=== PATIENT | female | born 1975 | race Caucasian/White ===

== ENCOUNTER 2016-12-26 16:00 | Emergency (ER) | payer SELFPAY ==
[2016-12-26 16:05] VITALS: BP 117/62
[2016-12-26] MEDS ORDERED: Tetan/Diph/Pertus SYR(Tdap)* 0.5 ML SYR(BOOSTRIX) use SYR IM ONE (17:02)
--- NOTE | 2016-12-26 18:26 | ED ---
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 She states immediately it was painful, red, swollen with copious amounts of watery discharge. Since arriving at the ED she states the discharge, redness and swelling has dissipated, but still feels as though it is irritated. She feels most of the discomfort on the lateral side of the left eye. Last tetanus unknown. Slightly injected over lateral canthus. Denies BRITO. - History of Current Complaint Chief Complaint: EDEyeProblem Time Seen by Provider: 12/26/16 17:01 Hx Obtained From: Patient Onset/Duration: Sudden Onset Severity: Moderate Associated Signs And Symptoms: Positive: Negative - Epiglottits Risk Factors Epiglottis Risk Factors: Negative - Allergies/Home Medications Allergies/Adverse Reactions: Allergies Allergy/AdvReac Type Severity Reaction Status Date / Time Furosemide [From Lasix] Allergy Severe Anaphylatic Verified 06/07/16 09:03 Shock Levofloxacin [From Levaquin] Allergy Severe Anaphylatic Verified 06/07/16 09:03 Shock Sulfa Antibiotics Allergy Mild Hives Verified 06/07/16 09:03 PMH/Surg Hx/FS Hx/Imm Hx Previously Healthy: Yes Endocrine/Hematology History: Denies: Hx Diabetes, Hx Thyroid Disease Cardiovascular History: Denies: Hx Hypertension, Hx Pacemaker/ICD Respiratory History: Denies: Hx Asthma, Hx Chronic Obstructive Pulmonary Disease (COPD) GI History: Denies: Hx Ulcer History: Reports: Hx Renal Disease Musculoskeletal History: Reports: Hx Back Problems Sensory History: Denies: Hx Hearing Aid Psychiatric History: Denies: Hx Panic Disorder - Cancer History Cancer Type, Location and Year: skin Hx Chemotherapy: No Hx Radiation Therapy: No - Surgical History Surgery Procedure, Year, and Place: tubal ligation;. benign mass from right maxillary sinus, - Immunization History Date of Tetanus Vaccine: unknown Infectious Disease History: No Infectious Disease History: Denies: Hx Clostridium Difficile, Hx Hepatitis, Hx Human Immunodeficiency Virus (HIV), Hx of Known/Suspected MRSA, Hx Shingles, Hx Tuberculosis, Hx Known/ Suspected VRE, Hx Known/Suspected VRSA, History Other Infectious Disease, Traveled Outside the [place] in Last 30 Days - Family History Known Family History: Positive: Unknown - adopted - Social History Occupation: Employed Full-time Lives: With Family Alcohol Use: None Hx Substance Use: No Substance Use Type: Reports: None Hx Tobacco Use: Yes Smoking Status (MU): Light Every Day Tobacco Smoker Do You Chew or Dip Tobacco: No Review of Systems Constitutional: Negative Positive: Photophobia, Blurred Vision, Drainage - scant ENT: Negative Cardiovascular: Negative Respiratory: Negative Musculoskeletal: Negative Skin: Negative Neurological: Negative Psychological: Normal All Other Systems Reviewed And Are Negative: Yes Physical Exam Triage Information Reviewed: Yes Vital Signs On Initial Exam: Initial Vitals Temp Pulse Resp BP Pulse Ox 99.0 F 97 18 117/62 97 12/26/16 16:02 12/26/16 16:02 12/26/16 16:02 12/26/16 16:02 12/26/16 16:02 Vital Signs Reviewed: Yes Appearance: Positive: Well-Appearing, No Pain Distress, Well-Nourished Skin: Positive: Warm, Skin Color Reflects Adequate Perfusion, Dry Head/Face: Positive: Normal Head/Face Inspection Eyes: Positive: EOMI, PEDRO, Conjunctiva Inflammed - slightly injected on medial canthus ENT: Positive: Pharynx normal, TMs normal Respiratory/Lung Sounds: Positive: Breath Sounds Present Cardiovascular: Positive: Normal Musculoskeletal: Positive: Normal, Strength/ROM Intact Neurological: Positive: Normal, Sensory/Motor Intact, Alert, Oriented to Person Place, Time, Speech Normal Psychiatric: Positive: Normal Procedures - Eye Procedure Alcaine Drops Administered: Yes Eye FB Removal: other - did not attempt to remove. No FB found in eye Eye Irrigated w/ Saline (ccs): 20 Diagnostics - Vital Signs Vital Signs Temp Pulse Resp BP Pulse Ox 12/26/16 16:02 99.0 F 97 18 117/62 97 - Laboratory Lab Statement: Any lab studies that have been ordered have been reviewed, and results considered in the medical decision making process. EENT Course/Dx - Course Course Of Treatment: Irrigated eye with 20CC of NS. Tetracaine eye drops with dye used to attempt to locate FB. Ferrer lamp used. Sclera only slightly injected over lateral canthus. No FB appreciated. Patient feeling improved ( prior to tetracaine), but still having a slight discomfort. Tetanus ordered but patient left before it was given. Patient called by RN. Encouraged to follow up with Dr. Nieto. Return to ED if symptoms fail to improve. - Differential Diagnoses Differential Diagnoses: Corneal Abrasion, Foreign Body, Pain of Unknown Etiology , Penetrating Injury - Diagnoses Provider Diagnoses: Foreign body of eye, external, left Discharge - Discharge Plan Condition: Stable Disposition: HOME Patient Education Materials: Eye Foreign Body (ED) Referrals: Kingston Mcmahan MD [Primary Care Provider] - Terry Nieto MD [Medical Doctor] - Additional Instructions: If symptoms worsen, come back to ED. Follow up with ophthalmology next week. Tylenol or Ibuprofen as needed for discomfort.
== END 2016-12-26 18:08 | disposition home or self-care (01) ==
LOC: ED 16:00
DX: T15.92XA Foreign body on external eye, part unspecified, left eye, initial encounter (principal); X58.XXXA Exposure to other specified factors, initial encounter; Y93.9 Activity, unspecified; Y92.9 Unspecified place or not applicable; Y99.9 Unspecified external cause status
CPT/HCPCS: 90471; 99281

== ENCOUNTER 2017-02-25 09:27 | Emergency (ER) | payer SELFPAY ==
--- NOTE | 2017-02-25 10:45 | RAD ---
INDICATION: Right shoulder pain COMPARISON: None TECHNIQUE: Routine frontal and Y views were obtained. FINDINGS: There is mild AC joint osteoarthritis. The glenohumeral joint is intact. There are findings of calcific tendinitis.. IMPRESSION: MILD AC JOINT OSTEOARTHRITIS. CALCIFIC TENDINITIS.
[2017-02-25] MEDS ORDERED: Ketorolac INJ* 60 MG/2 ML VIAL IM ONE (10:49)
[2017-02-25] MEDS ORDERED: oxyCODONE/Acetamin 5/325 MG* TAB PO ONE (10:55)
--- NOTE | 2017-02-25 10:55 | ED ---
Upper Extremity Pain - HPI Summary HPI Summary: 42F presents with right shoulder injury a week ago. She states she had an injury to her right shoulder years ago and has had a catch in that shoulder ever since. She states a week ago she noticed some weakness in her shoulder that has been getting worst. She can not lift her arm above 90 degrees without it immediately dropping. She states the pain is greatest in the anterior portion of her shoulder but since has moved down to her right bicep. She is right handed. She denies any numbness or tingling or neck pain. - History of Current Complaint Chief Complaint: Jeff Stated Complaint: RT SHOULDER INJURY Time Seen by Provider: 02/25/17 09:42 Hx Last Menstrual Period: dec 04 - Allergies/Home Medications Allergies/Adverse Reactions: Allergies Allergy/AdvReac Type Severity Reaction Status Date / Time Furosemide [From Lasix] Allergy Severe Anaphylatic Verified 02/25/17 10:46 Shock Levofloxacin [From Levaquin] Allergy Severe Anaphylatic Verified 02/25/17 10:46 Shock Sulfa Antibiotics Allergy Mild Hives Verified 02/25/17 10:46 PMH/Surg Hx/FS Hx/Imm Hx Endocrine/Hematology History: Denies: Hx Diabetes, Hx Thyroid Disease Cardiovascular History: Denies: Hx Hypertension, Hx Pacemaker/ICD Respiratory History: Denies: Hx Asthma, Hx Chronic Obstructive Pulmonary Disease (COPD) GI History: Denies: Hx Ulcer History: Reports: Hx Renal Disease Musculoskeletal History: Reports: Hx Back Problems Sensory History: Denies: Hx Hearing Aid Psychiatric History: Denies: Hx Panic Disorder - Cancer History Cancer Type, Location and Year: skin Hx Chemotherapy: No Hx Radiation Therapy: No - Surgical History Surgery Procedure, Year, and Place: tubal ligation;. benign mass from right maxillary sinus, - Immunization History Date of Tetanus Vaccine: unknown Infectious Disease History: No Infectious Disease History: Denies: Hx Clostridium Difficile, Hx Hepatitis, Hx Human Immunodeficiency Virus (HIV), Hx of Known/Suspected MRSA, Hx Shingles, Hx Tuberculosis, Hx Known/ Suspected VRE, Hx Known/Suspected VRSA, History Other Infectious Disease, Traveled Outside the [place] in Last 30 Days - Family History Known Family History: Positive: Unknown - adopted - Social History Alcohol Use: None Hx Substance Use: No Substance Use Type: Reports: None Hx Tobacco Use: Yes Smoking Status (MU): Light Every Day Tobacco Smoker Review of Systems Negative: Fever Negative: Chest Pain Negative: Shortness Of Breath Positive: Myalgia - right shoulder pain All Other Systems Reviewed And Are Negative: Yes Physical Exam Triage Information Reviewed: Yes Vital Signs On Initial Exam: Initial Vitals Temp Pulse Resp BP Pulse Ox 97.6 F 114 16 134/60 100 02/25/17 09:29 02/25/17 09:29 02/25/17 09:29 02/25/17 09:29 02/25/17 09:29 Vital Signs Reviewed: Yes Appearance: Positive: Well-Appearing Skin: Positive: Warm, Dry Head/Face: Positive: Normal Head/Face Inspection Eyes: Positive: Normal, Conjunctiva Clear Respiratory/Lung Sounds: Positive: Clear to Auscultation, Breath Sounds Present Cardiovascular: Positive: Normal, RRR Musculoskeletal: Positive: Limited @ - right shoulder, Other - positve drop arm and empty can test, unable to place arm behind back, negative speed test, good pulses, capillary refill < 2secs, sensation grossly intact Diagnostics - Vital Signs Vital Signs Temp Pulse Resp BP Pulse Ox 02/25/17 10:40 97.6 F 114 16 134/60 100 02/25/17 09:29 97.6 F 114 16 134/60 100 - Laboratory Lab Statement: Any lab studies that have been ordered have been reviewed, and results considered in the medical decision making process. - Radiology shoulder Xray Interpretation: Positive (See Comments) - IMPRESSION: MILD AC JOINT OSTEOARTHRITIS. CALCIFIC TENDINITIS. Radiology Interpretation Completed By: Radiologist Course/Dx - Course Course Of Treatment: 42F presents with right shoulder pain for a week. She admits to weakness of the shoulder. The initially injury when the dog pulled on her arm. on exam has very limited ROM of shoulder due to pain and weakness. has postive drop arm test. unable to complete many of the shoulder tests due to pain , neg speeds. on xray has calcific tendonitis. discussed results with patient. patient appears to be in a lot of pain. discussed pain options and will give short course of narcotics after discussing pros vs cons. will have follow up with ortho. patient understands and agrees with plan - Diagnoses Differential Diagnosis/HQI/PQRI: Positive: Other - rotator cuff tear, impingement, calcified tendonitis Provider Diagnoses: Right shoulder pain Discharge - Discharge Plan Condition: Good Disposition: HOME Prescriptions: oxyCODONE/Acetamin 5/325 MG* [Percocet 5/325 TAB*] 1 tab PO Q6H PRN #8 tab MDD 4 PRN Reason: Pain Patient Education Materials: Shoulder Pain (ED) Referrals: Kingston Mcmahan MD [Primary Care Provider] - Kaiden Lee MD [Medical Doctor] - Additional Instructions: Take Tylenol and ibuprofen every 6 hours as needed for pain, use narcotic for break through pain Ice/heat area Perform ROM activities Follow up with ortho Return to ED if develop any new or worsening symptoms
[2017-02-25 11:15] VITALS: BP 113/66
== END 2017-02-25 11:15 | disposition home or self-care (01) ==
LOC: ED 09:27
DX: M25.511 Pain in right shoulder (principal); Z88.2 Allergy status to sulfonamides
CPT/HCPCS: 96372; 99282; A9270-GY

== ENCOUNTER 2019-04-16 09:55 | Emergency (ER) | payer OTHER ==
--- NOTE | 2019-04-16 10:39 | ED ---
Abdominal Pain/Female - HPI Summary HPI Summary: Patient is a 44-year-old female who presents emergency department for worsening left lower quadrant abdominal pain 2 weeks. Patient states she had her menstrual cycle about 2 weeks ago and it seemed to be heavier in flow and associated with increased pain to the left pelvic region. 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 Patient denies history of ovarian cysts. Patient notes a remote history of recurrent UTIs but has not had one in years. Patient otherwise denies abdominal surgeries or past medical history. She notes pain has been steady but over the last few days it has been more severe and constant. Associated symptoms of nausea and vomiting. Patient notes chronic constipation without change. Denies fever, chills, chest pain, shortness of breath, urinary discharge or bleeding, dysuria. Symptoms are moderate in severity. No current modifying factors. - History of Current Complaint Chief Complaint: EDAbdPain Stated Complaint: LOWER ABD PAIN PER PT Time Seen by Provider: 04/16/19 10:16 Hx Obtained From: Patient Hx Last Menstrual Period: dec 04 Pain Intensity: 7 Allergies/Adverse Reactions: Allergies Allergy/AdvReac Type Severity Reaction Status Date / Time furosemide [From Lasix] Allergy Anaphylatic Verified 04/16/19 10:11 Shock levofloxacin [From Levaquin] Allergy Anaphylatic Verified 04/16/19 10:11 Shock Sulfa (Sulfonamide AdvReac Itching Verified 04/16/19 10:11 Antibiotics) PMH/Surg Hx/FS Hx/Imm Hx Previously Healthy: Yes Endocrine/Hematology History: Denies: Hx Diabetes, Hx Thyroid Disease Cardiovascular History: Denies: Hx Hypertension, Hx Pacemaker/ICD Respiratory History: Denies: Hx Asthma, Hx Chronic Obstructive Pulmonary Disease (COPD) GI History: Denies: Hx Ulcer History: Reports: Hx Renal Disease Musculoskeletal History: Reports: Hx Back Problems Sensory History: Denies: Hx Hearing Aid Psychiatric History: Denies: Hx Panic Disorder - Cancer History Cancer Type, Location and Year: skin Hx Chemotherapy: No Hx Radiation Therapy: No - Surgical History Surgery Procedure, Year, and Place: tubal ligation;. benign mass from right maxillary sinus, - Immunization History Date of Tetanus Vaccine: unknown Infectious Disease History: No Infectious Disease History: Denies: Hx Clostridium Difficile, Hx Hepatitis, Hx Human Immunodeficiency Virus (HIV), Hx of Known/Suspected MRSA, Hx Shingles, Hx Tuberculosis, Hx Known/ Suspected VRE, Hx Known/Suspected VRSA, History Other Infectious Disease, Traveled Outside the [place] in Last 30 Days - Family History Known Family History: Positive: Unknown - adopted, Non-Contributory - Social History Occupation: Unemployed Lives: With Family Alcohol Use: None Hx Substance Use: No Substance Use Type: Reports: None Hx Tobacco Use: Yes Smoking Status (MU): Light Every Day Tobacco Smoker Review of Systems Constitutional: Negative Negative: Fever, Chills Cardiovascular: Negative Negative: Chest Pain Respiratory: Negative Negative: Shortness Of Breath Positive: Abdominal Pain, Vomiting, Nausea Genitourinary: Negative Neurological: Negative All Other Systems Reviewed And Are Negative: Yes Physical Exam Triage Information Reviewed: Yes Vital Signs On Initial Exam: Initial Vitals Temp Pulse Resp BP Pulse Ox 98.1 F 78 15 136/75 98 04/16/19 09:58 04/16/19 09:58 04/16/19 09:58 04/16/19 09:58 04/16/19 09:58 Vital Signs Reviewed: Yes Appearance: Positive: Well-Appearing - Pt. sitting up in bed in NAD. present. Skin: Positive: Warm, Dry Head/Face: Positive: Normal Head/Face Inspection Eyes: Positive: Normal, EOMI, PEDRO Neck: Positive: Supple Respiratory/Lung Sounds: Positive: Clear to Auscultation, Breath Sounds Present Cardiovascular: Positive: Normal, RRR Abdomen Description: Positive: Other: - Abd. is soft with marked tenderness to LLQ and suprapubic region with guarding. No CVA tenderness. Musculoskeletal: Positive: Normal, Strength/ROM Intact Neurological: Positive: Normal, CN Intact II-III Psychiatric: Positive: Affect/Mood Appropriate Diagnostics - Vital Signs Vital Signs Temp Pulse Resp BP Pulse Ox 04/16/19 10:16 80 100 04/16/19 09:58 98.1 F 78 15 136/75 98 - Laboratory Result Diagrams: 04/16/19 10:43 04/16/19 10:43 Lab Statement: Any lab studies that have been ordered have been reviewed, and results considered in the medical decision making process. Abdominal Pain Fem Course/Dx - Course Course Of Treatment: Pt. presenting with lower abd. pain worsening over 2 weeks. Afebrile with stable VS. Labs and ct scan ordered for further evaluation. PT. given IV toradol for pain. Labs are unremarkable. CT scan shows likely large left ovarian cyst. U/S ordered to evaluate ovary blood flow and further info. Pt. re-examined and still having a lot of pain, IV morphine ordered. U/S shows normal ovarian flow and likely endometrioma, reading per radiology. Results discussed with pt. Pain has improved. Pt. notes she has been rotating tylenol and motrin for pain without relieve, WIll rx a few days of lortab, loop tacker reviewed and no red flags noted. Pt. to f.u with JAVASCRIPT SOFTWARE ENGINEER for furthe evaluation. WIll return to ER if sxs change or worsen. Pt. understands and agrees with plan. - Diagnoses Differential Diagnosis: Positive: Appendicitis, Bowel Obstruction, Constipation , Diverticulitis, Ectopic , Ovarian Cyst, Pelvic Inflammatory Disease, , Renal Colic, Urinary Tract Infection Provider Diagnoses: Ovarian cyst Discharge - Sign-Out/Discharge Documenting (check all that apply): Patient Departure Patient Received Moderate/Deep Sedation with Procedure: No - Discharge Plan Condition: Improved Disposition: HOME Prescriptions: Hydrocodone/Acetaminophen [Hydrocodone-Acetamin 5-325 mg] 1 each PO Q6H #12 tablet MDD 4 Patient Education Materials: Ovarian Cyst (ED) Referrals: Asaf Rashid MD [Medical Doctor] - Additional Instructions: Schedule a follow up appointment with Dr. Rashid, JAVASCRIPT SOFTWARE ENGINEER, as soon as possible Pain medication as directed Return to ER if symptoms change or worsen - Billing Disposition and Condition Condition: IMPROVED Disposition: Home
[2019-04-16 10:51] LABS: ABS Basophils 0.1 10^3/ul (0-0.2); ABS Eosinophils 0.6 10^3/ul (0-0.6); ABS Lymphocytes 2.2 10^3/ul (1.0-4.8); ABS Monocytes 0.4 10^3/ul (0-0.8); ABS Neutrophils 6.1 10^3/ul (1.5-7.7); Eosinophil % 6.4 %; Hematocrit 40 % (35-47); Hemoglobin 13.8 g/dL (12.0-16.0); Lymphocyte % 23.7 %; Mean Corpuscular HGB Conc 35 g/dL (31-36); Mean Corpuscular Hemoglobin 32 pg (27-31); Mean Corpuscular Volume 93 fL (80-97); Mean Platelet Volume 7.3 fL (7.4-10.4); Platelet Count 288 10^3/uL (150-450); Red Cell Distribution Width 14 % (10-15); White Blood Count 9.5 10^3/uL (3.5-10.8)
[2019-04-16] MEDS ORDERED: Ketorolac INJ* 30 MG/ML 1 ML VIAL IV PUSH ONE (10:56)
[2019-04-16] MEDS ORDERED: Ondansetron INJ* 2 MG/ML VIAL IV ONE (10:56)
[2019-04-16] MEDS ORDERED: NS 0.9% 1000 ML** 1,000 ML IV ONE (10:57)
[2019-04-16 11:12] LABS: HCG Pregnancy < 0.60 mIU/mL
[2019-04-16 11:20] LABS: ALT 13 U/L (7-52); AST 15 U/L (13-39); Albumin 4.4 g/dL (3.2-5.2); Albumin/Globulin Ratio 1.7 (1-3); Alkaline Phosphatase 45 U/L (34-104); Anion Gap 5 mmol/L (2-11); BUN/Creatinine Ratio 17.5 (8-20); Blood Urea Nitrogen 11 mg/dL (6-24); C Reactive Protein < 1.00 mg/L (<8.01); CO2 Carbon Dioxide 29 mmol/L (22-32); Calcium 9.3 mg/dL (8.6-10.3); Chloride 106 mmol/L (101-111); EGFR African American 125.4 (>60); EGFR Non-African American 103.6 (>60); Globulin 2.6 g/dL (2-4); Glucose 102 mg/dL (70-100); Sodium 140 mmol/L (135-145)
[2019-04-16 11:28] LABS: Urine Appearance Cloudy; Urine Bacteria Absent (Absent); Urine Bilirubin Negative (Negative); Urine Blood Negative (Negative); Urine Color Yellow; Urine Glucose Negative (Negative); Urine Ketones Negative (Negative); Urine Nitrite Negative (Negative); Urine Protein Negative (Negative); Urine Red Blood Cell Trace(0-2/hpf) (Absent); Urine Specific Gravity 1.009 (1.010-1.030); Urine Squamous Epithelial Cell Present (Absent); Urine Urobilinogen Negative (Negative); Urine White Blood Cell Trace(0-5/hpf) (Absent)
[2019-04-16] MEDS ORDERED: Iohexol 300* (CONTRAST) 10 ML SDV IV ONE (12:11)
[2019-04-16] MEDS ORDERED: Morphine 4 MG/ML VIAL (1 ml) 4 MG/ML VIAL IV ONE (13:08)
[2019-04-16 15:20] VITALS: BP 127/77
== END 2019-04-16 15:19 | disposition home or self-care (01) ==
LOC: ED 09:55
DX: N83.202 Unspecified ovarian cyst, left side (principal); N83.201 Unspecified ovarian cyst, right side; F17.210 Nicotine dependence, cigarettes, uncomplicated
CPT/HCPCS: 36415; 74177; 76830; 80053; 81003; 81015; 83605; 83690; 84702; 85025; 86140; 87086; 96361; 96374; 96375; 99282; J1885; J2270; J2405; Q9967

== ENCOUNTER 2019-05-12 16:12 | Emergency (ER) | payer OTHER ==
--- OUTSIDE RECORDS SUMMARY | 2019-05-12 16:41 | XMS REPORT | Continuity of Care Document ---
:1975 External Reference #:[id number] Author Name Karol Stanton Care Team Providers Name Role Phone Ca Mallory DO Primary Care Physician Unavailable Payers Date Identification Numbers Payment Provider Subscriber Expires: Policy Number: [id number] TIANNA Crenshaw Thee Mcdermotter 2015 PayID: [id number] [address] [address] [place] [address] Effective: 2019 Policy Number: [id number] Ashcheryl Davis Expires: 2020 Group Number: [id number] [address] PayID: [id number] [place] [address] Problems Active Problems Provider Date Backache Bill Caldwell M.D. Onset: 07/21/2015 Breast lump Kingston Mcmahan M.D.,FACP Onset: 11/27/2016 Note: left Inactive Problems Pain in face Bill Caldwell M.D. Onset: 08/17/2014 Inactive: 05/10/2016 Neck pain Bill Caldwell M.D. Onset: 11/17/2014 Inactive: 05/10/2016 Resolved Problems Pyelonephritis Bill Caldwell M.D. 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 Tobacco Use Start: Unknown Light tobacco smoker (10 or fewer cigarettes/day) Smoking Status Reviewed: 04/19/19 Light tobacco smoker (10 or fewer cigarettes/day) ETOH Use 11/27/2016 Never used alcohol Tobacco Use Start: Unknown Light tobacco smoker (10 or fewer cigarettes/day) Recreational Drug Use Never Used Drugs Exercise Type/Frequency Used to do cardiac rehab daily Allergies, Adverse Reactions, Alerts Active Allergies Reaction Severity Comments Date Lasix 08/17/2014 Sulfa Antibiotics 08/17/2014 Levaquin 08/17/2014 Medications Active Medications SIG Qnty Indications Ordering Date Provider Tramadol HCL 1 tablet every 6 30tabs Radha Mullins N.P. 04/19/2019 50mg hours as needed for Tablets pain Medrol take as directed per 21tabs M75.31 [facility] 02/27/2017 4mg Tablets dosepak instructions MD Robby Naproxen 1 by mouth twice a 60tabs M75.31 [facility] 02/27/2017 500mg day as needed pain MD Robby Tablets Foam Ring 2" use when sitting for M53.87 Henok Rollins, BRIEN 05/23/2015 2" comfort Misc Ibuprofen as needed Unknown 200mg Capsules History Medications Percocet 1 tab by mouth 14tabs M75.31 [facility] 02/27/2017 - 5-325mg Tablets every 6 hours MD Robby 03/04/2017 Chantix Starting Month as directed 1tabs Z71.6 Henok Rollins, 09/27/2015 - Peter continue for 12 [employer] 12/26/2015 0.5mg X 11 & 1 mg X 42 weeks Tablets Naproxen 1 tablet by 60tabs M53.88 Henok Rollins, 07/21/2015 - 500mg Tablets mouth twice a [employer] 03/04/2017 day with foods as needed pain Prednisone 1 tablet by 30tabs 724.5 Bill Caldwell, 07/21/2015 - 10mg Tablets mouth three M.D. 08/15/2015 times a day Tramadol HCL 1 by mouth 30tabs 724.5 Bill Caldwell, 07/21/2015 - 50mg Tablets twice a day, as M.D. 08/15/2015 needed Naproxen 1 tablet by 30tabs 724.6 Henok Rollins, 05/23/2015 - 250mg Tablets mouth tid as [employer] 07/21/2015 needed pain, with foods Hydrocodone-Acetaminoph 1-2 tabs every 40tabs 724.6 Henok Rollins, 2014 - en 6 hours as [employer] 07/20/2015 5-325mg Tablets needed Tramadol HCL 1 by mouth 30tabs Bill Reyezino, 11/22/2014 - 50mg Tablets twice a day, as M.D. 05/23/2015 needed Cyclobenzaprine HCL one by mouth 30tabs 723.1 Bill Reyezino, 11/17/2014 - 5mg three times a M.D. 05/23/2015 Tablets day as needed spasm Naproxen 1 tablet by 20tabs 723.1 Bill Reyezino, 11/17/2014 - 500mg Tablets mouth twice a M.D. 05/23/2015 day with foods as needed pain Tramadol HCL 1 tablet po bid 20tabs 350.2 Bill Reyezino, 08/17/2014 - 50mg Tablets pr severe pain M.D. 11/17/2014 Naproxen i tablet po bid 20tabs 350.2 Bill eRyezino, 08/17/2014 - 500mg Tablets with foods prn M.D. 05/23/2015 pain Tylenol Extra Strength 2 by mouth as 100tabs Unknown - needed 09/27/[address] by mouth twice 60tabs Unknown - 500mg Tablets a day with food 11/17/2014 DR Ibuprofen as needed 100tabs Unknown - 200mg Tablets 05/23/2015 Medications Administered in Office Medication SIG Qnty Indications Ordering Provider Date Depomedrol 40MG Segun Bustamante MD 02/27/2017 Injection Immunizations CPT Code Status Date Vaccine Lot # [id number] Given 11/03/2016 Influ Virus Vaccine, Quadrivalent, Split Virus, Im Fluzone not PF Vital Signs Date Vital Result Comment 04/19/2019 3:57pm Height 68.5 inches 5'8.50" Weight 166.00 lb Heart Rate 90 /min BP Systolic Sitting 120 mmHg BP Diastolic Sitting 75 mmHg O2 % BldC Oximetry 99 % BMI (Body Mass Index) 24.9 kg/m2 Last Menstrual Period [id number] 02/27/2017 2:52pm Height 68.5 inches 5'8.50" Weight 145.00 lb Heart Rate 81 /min BP Systolic 128 mmHg BP Diastolic 64 mmHg Respiratory Rate 17 /min Pain Level 9 BMI (Body Mass Index) 21.7 kg/m2 02/05/2017 11:38am Heart Rate 84 /min BP Systolic 110 mmHg BP Diastolic 76 mmHg Respiratory Rate 16 /min Body Temperature 98.6 F 01/24/2017 9:59am Height 69 inches 5'9" Weight 140.00 lb Heart Rate 76 /min BP Systolic 128 mmHg BP Diastolic 80 mmHg Respiratory Rate 16 /min Body Temperature 97.9 F BMI (Body Mass Index) 20.7 kg/m2 11/27/2016 9:34am Height 69 inches 5'9" Weight 149.00 lb Heart Rate 92 /min BP Systolic Sitting 120 mmHg BP Diastolic Sitting 71 mmHg Body Temperature 98.6 F O2 % BldC Oximetry 98 % BMI (Body Mass Index) 22.0 kg/m2 05/10/2016 1:29pm Height 69 inches 5'9" Weight 146.12 lb Heart Rate 112 /min BP Systolic Sitting 124 mmHg BP Diastolic Sitting 70 mmHg Body Temperature 99.1 F O2 % BldC Oximetry 96 % BMI (Body Mass Index) 21.6 kg/m2 02/02/2016 11:33am Height 69 inches 5'9" Weight 154.50 lb Heart Rate 108 /min BP Systolic Sitting 108 mmHg BP Diastolic Sitting 78 mmHg Body Temperature 98.5 F O2 % BldC Oximetry 98 % BMI (Body Mass Index) 22.8 kg/m2 09/27/2015 3:17pm Height 69 inches 5'9" Weight 161.00 lb Heart Rate 95 /min BP Systolic Sitting 114 mmHg BP Diastolic Sitting 70 mmHg Body Temperature 97.7 F O2 % BldC Oximetry 98 % BMI (Body Mass Index) 23.8 kg/m2 08/15/2015 1:45pm Height 69 inches 5'9" Weight 167.00 lb Heart Rate 76 /min BP Systolic Sitting 122 mmHg BP Diastolic Sitting 78 mmHg Pain Level 6 back BMI (Body Mass Index) 24.7 kg/m2 07/21/2015 9:03am Height 69 inches 5'9" Weight 170.38 lb Heart Rate 91 /min BP Systolic Sitting 104 mmHg BP Diastolic Sitting 60 mmHg Body Temperature 98.6 F Pain Level 4 O2 % BldC Oximetry 98 % BMI (Body Mass Index) 25.2 kg/m2 05/23/2015 1:23pm Height 69 inches 5'9" Weight 176.00 lb Heart Rate 104 /min BP Systolic Sitting 108 mmHg BP Diastolic Sitting 67 mmHg Body Temperature 98.5 F O2 % BldC Oximetry 98 % BMI (Body Mass Index) 26.0 kg/m2 11/17/2014 9:44am Height 69 inches 5'9" Weight 164.00 lb Heart Rate 64 /min BP Systolic 124 mmHg BP Diastolic 70 mmHg Body Temperature 98.8 F BMI (Body Mass Index) 24.2 kg/m2 08/17/2014 11:56am Height 69 inches 5'9" Weight 158.50 lb Heart Rate 80 /min BP Systolic Sitting 106 mmHg BP Diastolic Sitting 70 mmHg Body Temperature 97.5 F BMI (Body Mass Index) 23.4 kg/m2 Results Test Date Facility Test Result H/L Range Note Comp Metabolic Panel 06/03/2016 [facility] Sodium 140 mmol/L N 133-[address] [place] [address] [phone] Potassium 3.7 mmol/L N 3.5-5.0 Chloride 109 mmol/L N 101-111 Co2 Carbon Dioxide 26 mmol/L N 22-32 Anion Gap 5 mmol/L N 2-11 Glucose 105 mg/dL High 70-100 Blood Urea Nitrogen 7 mg/dL N 6-24 Creatinine 0.62 mg/dL N 0.51-0.95 BUN/Creatinine Ratio 11.3 N 8-20 Calcium 9.0 mg/dL N 8.6-10.3 Total Protein 6.7 g/dL N 6.4-8.9 Albumin 4.3 g/dL N 3.2-5.2 Globulin 2.4 g/dL N 2-4 Albumin/Globulin Ratio 1.8 N 1-3 Total Bilirubin 1.00 mg/dL N 0.2-1.0 Alkaline Phosphatase 49 U/L N 34-104 Alt 9 U/L N 7-52 Ast 12 U/L Low 13-39 Egfr Non- 107.2 N >60 Egfr 137.8 N >60 1 CBC Auto Diff 06/03/2016 [facility] White Blood 10.3 10^3/uL N 3.5-10.[address] [place] [address] [phone] Red Blood Count 4.67 10^6/uL N 4.0-5.4 Hemoglobin 14.5 g/dL N 12.0-16.0 Hematocrit 43 % N 35-47 Mean Corpuscular Volume 92 fL N 80-97 Mean Corpuscular Hemoglobin 31 pg N 27-31 Mean Corpuscular HGB Conc 34 g/dL N 31-36 Red Cell Distribution Width 14 % N 10.5-15 Platelet Count 315 10^3/uL N 150-450 Mean Platelet Volume 8 um3 N 7.4-10.4 Abs Neutrophils 7.6 10^3/uL N 1.5-7.7 Abs Lymphocytes 1.9 10^3/uL N 1.0-4.8 Abs Monocytes 0.4 10^3/uL N 0-0.8 Abs Eosinophils 0.3 10^3/uL N 0-0.6 Abs Basophils 0.1 10^3/uL N 0-0.2 Abs Nucleated RBC 0.01 10^3/uL N Granulocyte % 73.3 % N 38-83 Lymphocyte % 18.8 % Low 25-47 Monocyte % 4.2 % N 1-9 Eosinophil % 2.8 % N 0-6 Basophil % 0.9 % N 0-2 Nucleated Red Blood Cells % 0 N Blood Culture 01/31/2015 [facility] Blood Culture (SEE NOTE) 2, [address] [place] [address] [phone] CBC Auto Diff 01/30/2015 [facility] White Blood 9.7 10^3/uL N 4.8-[address] Count .8 [place] [address] [phone] Red Blood Count 4.35 10^6/uL N 4.0-5.4 Hemoglobin 14.3 g/dL N 12.0-16.0 Hematocrit 42 % N 35-47 Mean Corpuscular Volume 96 fL N 80-97 Mean Corpuscular Hemoglobin 33 pg High 27-31 Mean Corpuscular HGB Conc 34 g/dL N 31-36 Red Cell Distribution Width 13 % N 10.5-15 Platelet Count 268 10^3/uL N 150-450 Mean Platelet Volume 8 um3 N 7.4-10.4 Abs Neutrophils 5.3 10^3/uL N 1.5-7.7 Abs Lymphocytes 3.1 10^3/uL N 1.0-4.8 Abs Monocytes 0.5 10^3/uL N 0-0.8 Abs Eosinophils 0.6 10^3/uL N 0-0.6 Abs Basophils 0.1 10^3/uL N 0-0.2 Abs Nucleated RBC 0 10^3/uL N Granulocyte % 54.5 % N 38-83 Lymphocyte % 32.3 % N 25-47 Monocyte % 5.5 % N 1-9 Eosinophil % 6.5 % High 0-6 Basophil % 1.2 % N 0-2 Nucleated Red Blood Cells % 0 N Laboratory test 01/30/2015 [facility] Serum Negative N Negative [address] [place] [address] [phone] Comp Metabolic 01/30/2015 [facility] Sodium 137 mmol/L N 133- [address] [place] [address] [phone] Potassium 3.7 mmol/L N 3.5-5.0 Chloride 107 mmol/L N 101-111 Co2 Carbon Dioxide 26 mmol/L N 22-32 Anion Gap 4 mmol/L N 2-11 Glucose 93 mg/dL N 70-100 Blood Urea Nitrogen 14 mg/dL N 6-24 Creatinine 0.70 mg/dL N 0.51-0.95 BUN/Creatinine Ratio 20.0 N 8-20 Calcium 9.3 mg/dL N 8.6-10.3 Total Protein 6.9 g/dL N 6.4-8.9 Albumin 4.7 g/dL N 3.2-5.2 Globulin 2.2 g/dL N 2-4 Albumin/Globulin Ratio 2.1 N 1-3 Total Bilirubin 1.20 mg/dL High 0.2-1.0 Alkaline Phosphatase 49 U/L N 34-104 Alt 22 U/L N 7-52 Ast 18 U/L N 13-39 Egfr Non- 94.2 N >60 Egfr 121.1 N >60 5 Laboratory test finding 01/30/2015 [facility] Amylase 46 U/L N 29-[address] [place] [address] [phone] Lipase 24 U/L N 11.0-82.0 C Reactive Protein < 1.00 mg/L N < 5.00 6 Urine Culture And 01/30/2015 [facility] Urine Culture (SEE NOTE ) [address] [place] [address] [phone] Urinalysis Profile 01/30/2015 [facility] Urine Color Yellow N [address] [place] [address] [phone] Urine Appearance Cloudy N Urine Specific [place] 1.026 N 1.010-1.030 Urine pH 6.0 N 5-9 Urine Urobilinogen Negative N Negative Urine Ketones Negative N Negative Urine Protein Negative N Negative Urine Leukocytes Negative N Negative Urine Blood Negative N Negative Urine Nitrite Negative N Negative Urine Bilirubin Negative N Negative Urine Glucose Negative N Negative Blood Culture 01/30/2015 [facility] Blood Culture (SEE NOTE) [address] [place] [address] [phone] 1 Because ethnic data is not always readily available, this report includes an eGFR for both -Americans and non- Americans. The National Kidney Disease Education Program (NKDEP) does not endorse the use of the MDRD equation for patients that are not between the ages of 18 and 70, are , have extremes of body size, muscle mass, or nutritional status, or are non- or non-. According to the National Kidney Foundation, irrespective of diagnosis, the stage of the disease is based on the level of kidney function: Stage Description GFR(mL/min/1.73 m(2)) 1 Kidney damage with normal or decreased GFR 90 2 Kidney damage with mild decrease in GFR 60-89 3 Moderate decrease in GFR 30-59 4 Severe decrease in GFR 15-29 5 Kidney failure <15 (or dialysis) 2 Patient is On Antibiotics? NO 3 RUN DATE: 02/05/15 [facility] LAB LIVE PAGE 1 RUN TIME: 7 [address] [place], [place] [address] Specimen Inquiry Name: THEE SILVERMAN : [address]: Sim Orellana MD Acct: [id number] Unit: [id number] AGE: 39 Location: ED Re01/30/15 SEX: F Status: DEP ER SPEC: [id number] KALEB: 01/31/15- SUBM DR: Beltran Camp DO REQ: [id number] RECD: 01/31/15 STATUS: JEFERSON ELLIS DR: Bill Orellana MD _ SOURCE: BLOOD,VENO SPDESC: ORDERED: Blood Cult COMMENTS: Patient is On Antibiotics? NO Procedure Result Verified Site Aerobic Culture Bottle Final 02/05/15- 0007 ML No Growth Day 5 Anaerobic Culture Bottle Final 02/05/15- 0007 ML No Growth Day 5 * ML - MAIN LAB ([facility]) . END OF REPORT * ML=Testing performed at Main Lab DEPARTMENT OF PATHOLOGY, [address] [place] [address] Nitin Ortiz M.D. Director [facility] # [id number] 4 This test detects intact HCG only and is indicated for the early detection of . 5 Because ethnic data is not always readily available, this report includes an eGFR for both -Americans and non- Americans. The National Kidney Disease Education Program (NKDEP) does not endorse the use of the MDRD equation for patients that are not between the ages of 18 and 70, are , have extremes of body size, muscle mass, or nutritional status, or are non- or non-. According to the National Kidney Foundation, irrespective of diagnosis, the stage of the disease is based on the level of kidney function: Stage Description GFR(mL/min/1.73 m(2)) 1 Kidney damage with normal or decreased GFR 90 2 Kidney damage with mild decrease in GFR 60-89 3 Moderate decrease in GFR 30-59 4 Severe decrease in GFR 15-29 5 Kidney failure <15 (or dialysis) 6 Acute inflammation: >10.00 7 RUN DATE: 02/02/15 [facility] LAB LIVE PAGE 1 RUN TIME: [address] [place] [address] Specimen Inquiry Name: THEE SILVERMAN : [address]: Sim Orellana MD Acct: [id number] Unit: [id number] AGE: 39 Location: ED Re01/30/15 SEX: F Status: DEP ER SPEC: [id number] KALEB: 01/30/[address] [facility] [address]: Sim Orellana MD REQ: [id number] RECD: 01/31/15 STATUS: JEFERSON ELLIS DR: Bill Caldwell MD _ SOURCE: URINE SPDESC: ORDERED: Urine Culture Procedure Result Verified Site Urine Culture Final 02/02/15- 908 ML Organism 1 NORMAL KAR[place] Count 50-75,000 (Many) CFU/ML * ML - MAIN LAB ([facility]) . END OF REPORT * ML=Testing performed at Main Lab DEPARTMENT OF PATHOLOGY, [address] [place] [address] Nitin Ortiz M.D. Director [facility] # [id number] RUN DATE: 02/05/15 [facility] LAB LIVE PAGE 1 RUN TIME: [address] [place], [place] [address] Specimen Inquiry Name: THEE SILVERMAN : [address]: Sim Orellana MD Acct: [id number] Unit: [id number] AGE: 39 Location: ED Re01/30/15 SEX: F Status: DEP ER SPEC: [id number] KALEB: 01/30/15-[address] [facility] [address]: Beltran Camp DO REQ: [id number] RECD: 01/31/15 STATUS: JEFERSON ELLIS DR: Bill Orellana MD _ SOURCE: BLOOD,VENO SPDESC: ORDERED: Blood Cult COMMENTS: Patient is On Antibiotics? NO Procedure Result Verified Site Aerobic Culture Bottle Final 02/05/15- 0007 ML No Growth Day 5 Anaerobic Culture Bottle Final 02/05/15- 0007 ML No Growth Day 5 * ML - MAIN LAB ([facility]) . END OF REPORT * ML=Testing performed at Main Lab DEPARTMENT OF PATHOLOGY, [address] [place] [address] Nitin Ortiz M.D. Director [facility] # [id number] Procedures Date Code Description Status 02/27/2017 23708 Inject/Drain Joint/Bursa Major W/O US Completed 02/20/2016 39277490 Mammogram Completed Encounters Type Date Location Provider Dx Diagnosis Office Visit 02/27/2017 Orthopedic Segun Garvey M75.31 Calcific tendinitis 2:30p [facility] Bustamante MD of right shoulder Office Visit 02/05/2017 Surgical Pema Nunez, N63 Unspecified lump in 11:15a [facility] breast Office Visit 01/24/2017 Surgical Michael Cm, N63 Unspecified lump in 10:15a [facility] breast N64.4 Mastodynia N64.52 Nipple discharge Office Visit 11/27/2016 9:50a [facility] Internal [place] Hall M54.9 Emilio Shipman M.D.,FACP unspecified [address] N64.4 Mastodynia Office Visit 05/10/2016 1:20p [facility] Internal Kingston Mcmahan, N64.4 Mastodynia Medicine - [address] Ace,FACP M47.816 Spondylosis w/o myelopathy or radiculopathy, lumbar region Office Visit 02/02/2016 11:40a [facility] Internal Kingston Mcmahan, N64.4 Mastodynia Medicine - [address] MRamila,FACP M47.816 Spondylosis w/o myelopathy or radiculopathy, lumbar region Office Visit 09/27/2015 3:30p [facility] Internal Henok Rollins M47.816 Spondylosis w/o Medicine - [employer] myelopathy or [address] radiculopathy, lumbar region Z71.6 Tobacco abuse counseling Office Visit 08/15/2015 Neurosurgery Juice Dennis M47.816 Spondylosis w/o 2:00p [facility] Ace Swann myelopathy or radiculopathy, lumbar region Office Visit 07/21/2015 [facility] Internal Bill 724.5 Backache Unspec 9:00a Medicine - [address] Caldwell R 724.2 Lumbago Office Visit 05/23/2015 1:30p [facility] Internal Henok Rollins, 724.6 Sacral Disorder Medicine - Suite [employer] R Office Visit 11/17/2014 9:40a [facility] Internal Bill Caldwell, 723.1 [facility] 728.9 Muscle Disorders Unspec 350.2 Face Pain Atypical 728.85 Spasm Muscle Office Visit 08/17/2014 12:40p [facility] Internal Bill Caldwell, 350.2 [facility] Atypical 351.8 Nerve Disorder Facial Other 521.00 Unspecified Dental Caries V13.02 Personal History Urinary Tract Infection Plan of Treatment 04/19/2019 - Radha Mullins, N.P.R10.2 Pelvic and perineal painComments:Ovarian cysts should be re-imaged in 6 weeks. Try tramadol for pain.N93.9 Abnormal uterine and vaginal bleeding, unspecifiedComments:I recommend that you read the Period Repair Manual. In that book you will see that periods are supported by healthy lifestyle (good diet, exercise, stress reduction), magnesium glycinate 300mg po daily, zinc, and ibuprofen 600mg po daily while menstruating.
--- OUTSIDE RECORDS SUMMARY | 2019-05-12 16:41 | XMS REPORT | Continuity of Care Document ---
:1975 External Reference #:[id number] Author Name Jarrell Sarah Care Team Providers Name Role Phone Ca Mallory DO Primary Care Physician Unavailable Payers Date Identification Numbers Payment Provider Subscriber Expires: Policy Number: [id number] TIANNA Crenshaw Thee Mcdermotter 2015 PayID: [id number] [address] [address] [place] [address] Effective: 2019 Policy Number: [id number] Ashcheryl Davis Expires: 2020 Group Number: [id number] [address] PayID: [id number] [place] [address] Problems Active Problems Provider Date Backache Bill [...] (10 or fewer cigarettes/day) Smoking Status Reviewed: 05/07/19 Light tobacco smoker (10 or fewer cigarettes/day) ETOH Use 11/27/2016 Never used alcohol Tobacco Use Start: Unknown Light tobacco smoker (10 or fewer cigarettes/day) Recreational Drug Use Never Used Drugs Exercise Type/Frequency Used to do cardiac rehab daily Allergies, Adverse Reactions, Alerts Active Allergies Reaction Severity Comments Date Lasix 08/17/2014 Sulfa Antibiotics 08/17/2014 Levaquin 08/17/2014 Medications Active Medications SIG Qnty Indications Ordering Provider Date Tramadol HCL 1-2 tablet every 14tabs Imelda Beth, 04/22/2019 50mg 6 hours as needed SPECIAL DELIVERY MESSENGER-Cde Tablets for pain Tramadol HCL 1 tablet every 6 30tabs Asaf Rashid MD 04/19/2019 50mg hours as needed Tablets for pain Naproxen 1 by mouth twice 60tabs M75.31 Segun Garvey 02/27/2017 500mg Tablets a day as needed MD Robby pain Foam Ring 2" use when sitting M53.87 Henok Rollins, BRIEN 05/23/2015 2" Misc for comfort Ibuprofen as needed Unknown 200mg Capsules History Medications Norethindrone Acetate 1 po qd 30tabs N83.202 Imelda Beth, 04/29/2019 - SPECIAL DELIVERY MESSENGER-Cde 05/06/2019 5mg Tablets Medrol take as directed 21tabs M75.31 Segun 02/27/2017 - 4mg Tablets per dosepak MD Robby Unknown instructions Percocet 1 tab by mouth 14tabs M75.31 [facility] 02/27/2017 - 5-325mg every 6 hours MD Robby 03/04/2017 Tablets Chantix Starting as directed 1tabs Z71.6 Henok Rollins, 09/27/2015 - Month Peter continue for 12 DELIVERY ARCHITECT 12/26/2015 0.5mg X 11 & weeks 1 mg X 42 Tablets Tramadol HCL 1 by mouth twice a 30tabs 724.5 Bill Caldwell, 07/21/2015 - 50mg day, as needed M.D. 08/15/2015 Tablets Prednisone 1 tablet by mouth 30tabs 724.5 Bill Caldwell, 07/21/2015 - 10mg Tablets three times a day M.D. 08/15/2015 Naproxen 1 tablet by mouth 60tabs M53.88 Henok Rollins, 07/21/2015 - 500mg Tablets twice a day with DELIVERY ARCHITECT 03/04/2017 foods as needed pain Hydrocodone-Acetamino 1-2 tabs every 6 40tabs 724.6 Henok Ayo, 2014 - phen hours as needed DELIVERY ARCHITECT 07/20/2015 5-325mg Tablets Naproxen 1 tablet by mouth 30tabs 724.6 Henok Rollins, 05/23/2015 - 250mg Tablets tid as needed DELIVERY ARCHITECT 07/21/2015 pain, with foods Tramadol HCL 1 by mouth twice a 30tabs Bill Caldwell, 11/22/2014 - 50mg day, as needed M.D. 05/23/2015 Tablets Cyclobenzaprine HCL one by mouth three 30tabs 723.1 Bill Caldwell, 2014 - 5mg times a day as M.D. 05/23/2015 Tablets needed spasm Naproxen 1 tablet by mouth 20tabs 723.1 Bill Caldwell, 11/17/2014 - 500mg Tablets twice a day with M.D. 05/23/2015 foods as needed pain Tramadol HCL 1 tablet po bid pr 20tabs 350.2 Bill Caldwlel, 08/17/2014 - 50mg severe pain M.D. 11/17/2014 Tablets Naproxen i tablet po bid 20tabs 350.2 Bill Caldwell, 08/17/2014 - 500mg Tablets with foods prn M.D. 05/23/2015 pain Tylenol Extra 2 by mouth as 100tabs Unknown - Strength needed 09/27/[address] by mouth twice a 60tabs Unknown - 500mg day with food 11/17/[address] Ibuprofen as needed 100tabs Unknown - 200mg Tablets 05/23/2015 Medications Administered in Office Medication SIG Qnty Indications Ordering Provider Date Depomedrol 40MG Segun Bustamante MD 02/27/2017 Injection Immunizations CPT Code Status Date Vaccine Lot # [id number] Given 11/03/2016 Influ Virus Vaccine, Quadrivalent, Split Virus, Im Fluzone not PF Vital Signs Date Vital Result Comment 05/07/2019 8:56am Height 68.5 inches 5'8.50" Weight 160.00 lb Heart Rate 128 /min BP Systolic 114 mmHg BP Diastolic 74 mmHg O2 % BldC Oximetry 100 % BMI (Body Mass Index) 24.0 kg/m2 04/29/2019 9:16am Height 68.5 inches 5'8.50" Weight 160.00 lb Heart Rate 87 /min BP Systolic 111 mmHg BP Diastolic 75 mmHg O2 % BldC Oximetry 100 % BMI (Body Mass Index) 24.0 kg/m2 04/19/2019 3:57pm Height 68.5 inches 5'8.50" Weight 166.00 lb Heart Rate 90 /min BP Systolic Sitting 120 mmHg BP Diastolic Sitting 75 mmHg O2 % BldC Oximetry 99 % BMI (Body Mass Index) 24.9 kg/m2 Last Menstrual Period [id number] 02/27/2017 2:52pm Height 68.5 inches 5'8.50" Weight [...] Date Facility Test Result H/L Range Note GC/Chlamydia 04/19/2019 [facility] Chlamydia Negative Negative Amplified Rna [address] [place] [address] [phone] Neisseria gonorrhoeae (GC) Rna Negative Negative Comp Metabolic Panel 06/03/2016 [facility] Sodium 140 mmol/L N 133-[address] [place] [address] [phone] Potassium 3.7 mmol/L N 3.5-5.0 Chloride 109 [...] N >60 1 CBC Auto Diff 06/03/2016 [facility] White Blood 10.3 10^3/uL N 3.5-10.[address] [place] [address] [phone] Red Blood Count 4.67 10^6/uL N 4.0-5.4 [...] Cells % 0 N Blood Culture 01/31/2015 [facility] Blood Culture (SEE NOTE) 2, [address] [place] [address] [phone] CBC Auto Diff 01/30/2015 [facility] White Blood 9.7 10^3/uL N 4.8-10 101 [facility] Count .8 [place] [address] [phone] Red Blood Count 4.35 10^6/uL N 4.0-5.4 [...] Cells % 0 N Laboratory test 01/30/2015 [facility] Serum Negative N Negative 4 finding [address] [facility] [place] [place] [address] [phone] Comp Metabolic 01/30/2015 [facility] Sodium 137 mmol/L N 133- 145 Panel [address] [place] [address] [phone] Potassium 3.7 mmol/L N 3.5-5.0 Chloride 107 [...] N >60 5 Laboratory test finding 01/30/2015 [facility] Amylase 46 U/L N 29-103 [address] [place] [address] [phone] Lipase 24 U/L N 11.0-82.0 C Reactive Protein < 1.00 mg/L N < 5.00 6 Urine Culture And 01/30/2015 [facility] Urine Culture (SEE NOTE ) 7 Sensitivities [address] [place] [address] [phone] Urinalysis Profile 01/30/2015 [facility] Urine Color Yellow N [address] [place] [address] [phone] Urine Appearance Cloudy N Urine Specific [place] 1.026 N 1.010-1.030 Urine pH 6.0 N 5-9 Urine Urobilinogen Negative N Negative Urine Ketones Negative N Negative Urine Protein Negative N Negative Urine Leukocytes Negative N Negative Urine Blood Negative N Negative Urine Nitrite Negative N Negative Urine Bilirubin Negative N Negative Urine Glucose Negative N Negative Blood Culture 01/30/2015 [facility] Blood Culture (SEE NOTE) 8 [address] [place] [address] [phone] 1 Because ethnic data is not always [...] On Antibiotics? NO 3 RUN DATE: 02/05/15 [facility] LAB LIVE PAGE 1 RUN TIME: [address] [place] [address] Specimen Inquiry Name: THEE SILVERMAN : [address]: Sim Orellana MD Acct: [id number] Unit: [id number] AGE: 39 Location: ED Re01/30/15 SEX: F Status: DEP ER SPEC: [id number] KALEB: 01/31/15-[address]: Beltran Camp DO REQ: [id number] RECD: 01/31/15 STATUS: JEFERSON ELLIS DR: Bill Orellana MD _ SOURCE: BLOOD,VENO SPDESC: ORDERED: Blood Cult COMMENTS: Patient is On Antibiotics? NO Procedure Result Verified Site Aerobic Culture Bottle Final 02/05/15- 0007 ML No Growth Day 5 Anaerobic Culture Bottle Final 02/05/15- 0007 ML No Growth Day 5 * ML - MAIN LAB ([facility]) . END OF REPORT * ML=Testing performed at Main Lab DEPARTMENT OF PATHOLOGY, [address] [place] [address] Nitin Ortiz M.D. Director [facility] # [id number] 4 This test detects intact HCG only [...] Acute inflammation: >10.00 7 RUN DATE: 02/02/15 [facility] LAB LIVE PAGE 1 RUN TIME: [address] [place] [address] Specimen Inquiry Name: THEE SILVERMAN : [address]: Sim Orellana MD Acct: [id number] Unit: [id number] AGE: 39 Location: ED Re01/30/15 SEX: F Status: DEP ER SPEC: [id number] KALEB: 01/30/[address] [facility] [address]: Sim Orellana MD REQ: [id number] RECD: 01/31/15 STATUS: JEFERSON ELLIS DR: Bill Caldwell MD _ SOURCE: URINE SPDESC: ORDERED: Urine Culture Procedure Result Verified Site Urine Culture Final 02/02/15- 0909 ML Organism 1 NORMAL KARISHMA [place] Count 50-75,000 (Many) CFU/ML * ML - MAIN LAB ([facility]) . END OF REPORT * ML=Testing performed at Main Lab DEPARTMENT OF PATHOLOGY, [facility] [place] [address] Nitin Ortiz M.D. Director [facility] # [id number] 8 RUN DATE: 02/05/15 [facility] LAB LIVE PAGE 1 RUN TIME: 7 [facility] [place], [place] [address] Specimen Inquiry Name: THEE SILVERMAN : [address]: Sim Orellana MD Acct: [id number] Unit: [id number] AGE: 39 Location: ED Re01/30/15 SEX: F Status: DEP ER SPEC: [id number] KALEB: 01/30/[address] [facility] [address]: Beltran Camp DO REQ: [id number] RECD: 01/31/15 STATUS: COMP HR DR: Bill Orellana MD _ SOURCE: BLOOD,VENO SPDESC: ORDERED: Blood Cult COMMENTS: Patient is On Antibiotics? NO Procedure Result Verified Site Aerobic Culture Bottle Final 02/05/15- 6 ML No Growth Day 5 Anaerobic Culture Bottle Final 02/05/15- 000 ML No Growth Day 5 * ML - MAIN LAB ([facility]) . END OF REPORT * ML=Testing performed at Main Lab DEPARTMENT OF PATHOLOGY, [address] [place] [address] Nitin Ortiz M.D. Director [facility] # [id number] Procedures Date Code Description Status 02/27/2017 59478 Inject/Drain Joint/Bursa Major W/O US Completed 02/20/2016 [id number] Mammogram Completed Encounters Type Date Location Provider Dx Diagnosis Office Visit 04/19/2019 [facility] Radha Mullins N.P. R10.2 Pelvic and 4:00p [facility] perineal pain N83.202 Unspecified ovarian cyst, left side N93.9 Abnormal uterine and vaginal bleeding, unspecified Office Visit 02/27/2017 2:30p Orthopedic Segun Garvey M75.31 [facility] Robby tendinitis of C.M.A. right shoulder Office Visit 02/05/2017 11:15a Surgical Pema Lewis N63 Unspecified lump [facility] MD Enrique in breast Office Visit 01/24/2017 10:15a Surgical Michael Turner N63 Unspecified lump [facility] Aec Cm in breast N64.4 Mastodynia N64.52 Nipple discharge Office Visit 11/27/2016 9:50a [facility] Internal [place] M54.9 Dorsalgia, Medicine - Ace Mcmahan,FACP unspecified Suite [address] N64.4 Mastodynia Office Visit 05/10/2016 1:20p [facility] Internal [place] Mcmahan N64.4 Mastodynia Medicine - Suite [address] M.DJerry,FACP M47.816 Spondylosis w/o myelopathy or radiculopathy, lumbar region Office Visit 02/02/2016 11:40a [facility] Internal [place] Mcmahan N64.4 Mastodynia Medicine - [address] M.DJerry,FACP M47.816 Spondylosis w/o myelopathy or radiculopathy, lumbar region Office Visit 09/27/2015 3:30p [facility] Internal Henok Rollins M47.816 Spondylosis w/o Medicine - DELIVERY ARCHITECT myelopathy or Suite R radiculopathy, lumbar region Z71.6 Tobacco abuse counseling Office Visit 08/15/2015 Neurosurgery Juice Dennis M47.816 Spondylosis w/o 2:00p [facility] Ace Swann myelopathy or radiculopathy, lumbar region Office Visit 07/21/2015 [facility] Internal Bill 724.5 Backache Unspec 9:00a Medicine - Suite Ace Caldwell R 724.2 Lumbago Office Visit 05/23/2015 1:30p [facility] Internal Henok Rollins 724.6 Sacral Disorder Medicine - Suite DELIVERY ARCHITECT R Office Visit 11/17/2014 9:40a [facility] Internal Bill Caldwell, 723.1 Cervicalgia Medicine - Shaheen Bello 728.9 Muscle Disorders Unspec 350.2 Face Pain Atypical 728.85 Spasm Muscle Office Visit 08/17/2014 12:40p [facility] Internal Bill Caldwell, 350.2 Face Pain Medicine - Shaheen Bello Atypical 351.8 Nerve Disorder Facial Other 521.00 Unspecified Dental Caries V13.02 Personal History Urinary Tract Infection Plan of Treatment Future Appointment(s):06/10/2019 10:00 am - Asaf Rashid MD at [facility]05/07/2019 - Asaf Rashid, MDR10.32 Left lower quadrant painN83.202 Unspecified ovarian cyst, left side
--- OUTSIDE RECORDS SUMMARY | 2019-05-12 16:41 | XMS REPORT | Continuity of Care Document ---
:1975 External Reference #:[id number] Author Name Sarah Vieyar Care Team Providers Name Role Phone Ca Mallory DO Primary Care Physician Unavailable Payers Date Identification Numbers Payment Provider Subscriber Expires: Policy Number: [id number] TIANNA Crenshaw Thee Mcdermotter 2013 PayID: [id number] [address] [address] [place] [address] Effective: 2019 Policy Number: [id number] Steely Hollowcheryl Jacobs Expires: 2020 Group Number: [id number] [address] PayID: [id number] [place] [address] Problems Active Problems Provider Date Backache Bill [...] (10 or fewer cigarettes/day) Smoking Status Reviewed: 04/29/19 Light tobacco smoker (10 or fewer cigarettes/day) [...] Provider Date Tramadol HCL 1-2 tablet every 30tabs Imelda Beth 04/22/2019 50mg 6 hours as needed BLOOD COLLECTOR-Cde Tablets for pain Tramadol HCL 1 tablet every 6 30tabs Radha Mullins N.PJerry 04/19/2019 50mg hours as needed Tablets for pain Naproxen 1 by mouth twice 60tabs M75.31 [facility] 02/27/2017 500mg Tablets a day as needed MD Robby pain Foam Ring 2" use when sitting M53.87 Henok Rollins, LASTING MACHINE OPERATOR 05/23/2015 2" Misc for comfort Ibuprofen as needed Unknown 200mg Capsules History Medications Medrol take as directed 21tabs M75.31 [facility] 02/27/2017 - 4mg Tablets per dosepak MD Robby Unknown instructions Percocet 1 tab by mouth 14tabs M75.31 [facility] 02/27/2017 - 5-325mg Tablets every 6 hours MD Robby 03/04/2017 Chantix Starting Month as directed 1tabs Z71.6 Henok Rollins, 09/27/2015 - Peter continue for 12 LASTING MACHINE OPERATOR 12/26/2015 0.5mg X 11 & 1 mg X weeks 42 Tablets Tramadol HCL 1 by mouth twice a 30tabs 724.5 Bill Caldwell, 07/21/2015 - 50mg Tablets day, as needed M.D. 08/15/2015 Prednisone 1 tablet by mouth 30tabs 724.5 Bill Caldwell, 07/21/2015 - 10mg Tablets three times a day M.D. 08/15/2015 Naproxen 1 tablet by mouth 60tabs M53.88 Henok Rollins, 07/21/2015 - 500mg Tablets twice a day with LASTING MACHINE OPERATOR 03/04/2017 foods as needed pain Hydrocodone-Acetaminop 1-2 tabs every 6 40tabs 724.6 Henok Rollins, 2014 - hen hours as needed LASTING MACHINE OPERATOR 07/20/2015 5-325mg Tablets Naproxen 1 tablet by mouth 30tabs 724.6 Henok Ayo, 05/23/2015 - 250mg Tablets tid as needed LASTING MACHINE OPERATOR 07/21/2015 pain, with foods Tramadol HCL 1 by mouth twice a 30tabs Bill Caldwell, 11/22/2014 - 50mg Tablets day, as needed M.D. 05/23/2015 Cyclobenzaprine HCL one by mouth three 30tabs 723.1 Bill Caldwell, 2014 - 5mg times a day as M.D. 05/23/2015 Tablets needed spasm Naproxen 1 tablet by mouth 20tabs 723.1 Bill Caldwell, 11/17/2014 - 500mg Tablets twice a day with M.D. 05/23/2015 foods as needed pain Tramadol HCL 1 tablet po bid pr 20tabs 350.2 Bill Caldwell, 08/17/2014 - 50mg Tablets severe pain M.D. 11/17/2014 Naproxen i tablet po bid 20tabs 350.2 Bill Caldwell, 08/17/2014 - 500mg Tablets with foods prn M.D. 05/23/2015 pain Tylenol Extra Strength 2 by mouth as 100tabs Unknown - needed 09/27/[address] by mouth twice a 60tabs Unknown - 500mg Tablets day with food 11/17/2014 DR Ibuprofen as needed 100tabs Unknown - 200mg Tablets 05/23/2015 Medications Administered in Office Medication SIG Qnty Indications Ordering Provider Date Depomedrol 40MG Segun Bustamante MD 02/27/2017 Injection Immunizations CPT Code Status Date Vaccine Lot # [id number] Given 11/03/2016 Influ Virus Vaccine, Quadrivalent, Split Virus, Im Fluzone not PF Vital Signs Date Vital Result Comment 04/29/2019 9:16am Height 68.5 inches 5'8.50" Weight [...] Mass Index) 24.9 kg/m2 Last Menstrual Period [id number] 02/27/2017 2:52pm Height 68.5 inches 5'8.50" Weight [...] Test Result H/L Range Note GC/Chlamydia 04/19/2019 [facility] Chlamydia Negative Negative Amplified Rna [address] [place] [address] [phone] Neisseria gonorrhoeae (GC) Rna Negative Negative Comp Metabolic Panel 06/03/2016 [facility] Sodium 140 mmol/L N 133-[address] [place] [address] [phone] Potassium 3.7 mmol/L N 3.5-5.0 Chloride 109 [...] N >60 1 CBC Auto Diff 06/03/2016 [facility] White Blood 10.3 10^3/uL N 3.5-10.[address] [place] [address] [phone] Red Blood Count 4.67 10^6/uL N 4.0-5.4 [...] Cells % 0 N Blood Culture 01/31/2015 [facility] Blood Culture (SEE NOTE) 2, [address] [place] [address] [phone] CBC Auto Diff 01/30/2015 [facility] White Blood 9.7 10^3/uL N 4.8-[address] Count .8 [place] [address] [phone] Red Blood Count 4.35 10^6/uL N 4.0-5.4 [...] Cells % 0 N Laboratory test 01/30/2015 [facility] Serum Negative N Negative [address] [place] [address] [phone] Comp Metabolic 01/30/2015 [facility] Sodium 137 mmol/L N 133- [address] [place] [address] [phone] Potassium 3.7 mmol/L N 3.5-5.0 Chloride 107 [...] N >60 5 Laboratory test finding 01/30/2015 [facility] Amylase 46 U/L N 29-103 [address] [place] [address] [phone] Lipase 24 U/L N 11.0-82.0 C Reactive Protein < 1.00 mg/L N < 5.00 6 Urine Culture And 01/30/2015 [facility] Urine Culture (SEE NOTE ) 7 Sensitivities [address] [place] [address] [phone] Urinalysis Profile 01/30/2015 [facility] Urine Color Yellow N [address] [place] [address] [phone] Urine Appearance Cloudy N Urine Specific [place] 1.026 N 1.010-1.030 Urine pH 6.0 N 5-9 Urine Urobilinogen Negative N Negative Urine Ketones Negative N Negative Urine Protein Negative N Negative Urine Leukocytes Negative N Negative Urine Blood Negative N Negative Urine Nitrite Negative N Negative Urine Bilirubin Negative N Negative Urine Glucose Negative N Negative Blood Culture 01/30/2015 [facility] Blood Culture (SEE NOTE) [address] [place] [address] [phone] 1 Because ethnic data is not always [...] On Antibiotics? NO 3 RUN DATE: 02/05/15 [facility] LAB LIVE PAGE 1 RUN TIME: [address] [place] [address] Specimen Inquiry Name: MIKEY THEE JACOBS : [address]: Sim Orellana MD Acct: [id number] Unit: [id number] AGE: 39 Location: ED Re01/30/15 SEX: F Status: DEP ER SPEC: [id number] KALEB: 01/31/15-[address]: Beltran Camp DO REQ: [id number] RECD: 01/31/15-6 STATUS: COMP OKSANAHR DR: Bill Orellana MD _ SOURCE: BLOOD,VENO SPDESC: ORDERED: Blood Cult COMMENTS: Patient is On Antibiotics? NO Procedure Result Verified Site Aerobic Culture Bottle Final 02/05/15- 0007 ML No Growth Day 5 Anaerobic Culture Bottle Final 02/05/15- 0007 ML No Growth Day 5 * ML - [facility]) . END OF REPORT * ML=Testing performed at Main Lab DEPARTMENT OF PATHOLOGY, [facility] [employer] [place], [place] [address] Nitin Ortiz M.D. Director [facility] # [id number] 4 This test detects intact HCG only [...] Acute inflammation: >10.00 7 RUN DATE: 02/02/15 [facility] LAB LIVE PAGE 1 RUN TIME: 909 [facility], [place] [address] Specimen Inquiry Name: MIKEY JACOBSTHEE Jennifer : [address]: Sim Orellana MD Acct: [id number] Unit: [id number] AGE: 39 Location: ED Re01/30/15 SEX: F Status: DEP ER SPEC: [id number] KALEB: 01/30/[address]: Sim Orellana MD REQ: [id number] RECD: 01/31/15 STATUS: JEFERSON ELLIS DR: Bill Caldwell MD _ SOURCE: URINE SPDESC: ORDERED: Urine Culture Procedure Result Verified Site Urine Culture Final 02/02/15- 908 ML Organism 1 NORMAL KARISHMA [place] Count 50-75,000 (Many) CFU/ML * ML - MAIN LAB ([facility]) . END OF REPORT * ML=Testing performed at Main Lab DEPARTMENT OF PATHOLOGY, [facility] [employer] [place], [place] [address] Nitin Ortiz M.D. Director CLIA # [id number] 8 RUN DATE: 02/05/15 [facility] LAB LIVE PAGE 1 RUN TIME: 7 [facility] [place], [place] [address] Specimen Inquiry Name: THEE SILVERMAN : [address]: Sim Orellana MD Acct: [id number] Unit: [id number] AGE: 39 Location: ED Re01/30/15 SEX: F Status: DEP ER SPEC: [id number] KALEB: 01/30/15-[address]: Beltran Camp DO REQ: [id number] RECD: 01/31/15 STATUS: JEFERSON ELLIS DR: Bill Orellana MD _ SOURCE: BLOOD,VENO SPDESC: ORDERED: Blood Cult COMMENTS: Patient is On Antibiotics? NO Procedure Result Verified Site Aerobic Culture Bottle Final 02/05/15- 6 ML No Growth Day 5 Anaerobic Culture Bottle Final 02/05/156 ML No Growth Day 5 * ML - MAIN LAB ([facility]) . END OF REPORT * ML=Testing performed at Main Lab DEPARTMENT OF PATHOLOGY, [address] [place] [address] Nitin Ortiz M.D. Director [facility] # [id number] Procedures Date Code Description Status 02/27/2017 73803 Inject/Drain Joint/Bursa Major W/O US Completed 02/20/2016 [id number] Mammogram Completed Encounters Type Date Location Provider Dx Diagnosis Office Visit 02/27/2017 Orthopedic Segun Mare M75.31 Calcific tendinitis 2:30p [facility] Bustamante MD of right shoulder Office Visit 02/05/2017 Surgical Pema Nunez, N63 Unspecified lump in 11:15a [facility] breast Office Visit 01/24/2017 Surgical Michael Cm, N63 Unspecified lump in 10:15a [facility] Ace breast N64.4 Mastodynia N64.52 Nipple discharge Office Visit 11/27/2016 9:50a [facility] Internal [place] M54.9 Dorsalgia, Emilio - Ace Mcmahan,FACP unspecified Suite [address] N64.4 Mastodynia Office Visit 05/10/2016 1:20p [facility] Internal [place] Mcmahan, N64.4 Mastodynia Medicine - Suite R M.DJerry,FACP M47.816 Spondylosis w/o myelopathy or radiculopathy, lumbar region Office Visit 02/02/2016 11:40a [facility] Internal Kingston Mcmahan, N64.4 Mastodynia Medicine - Suite [address] M.DJerry,FACP M47.816 Spondylosis w/o myelopathy or radiculopathy, lumbar region Office Visit 09/27/2015 3:30p [facility] Internal Henok Rollins, M47.816 Spondylosis w/o Medicine - LASTING MACHINE OPERATOR myelopathy or Suite R radiculopathy, lumbar region Z71.6 Tobacco abuse counseling Office Visit 08/15/2015 Neurosurgery Juice Dennis M47.816 Spondylosis w/o 2:00p [facility] Ace Swann myelopathy or radiculopathy, lumbar region Office Visit 07/21/2015 [facility] Internal Bill 724.5 Backache Unspec 9:00a Medicine - Suite Ace Caldwell R 724.2 Lumbago Office Visit 05/23/2015 1:30p [facility] Internal Henok Rollins 724.6 Sacral Disorder Medicine - Suite LASTING MACHINE OPERATOR R Office Visit 11/17/2014 9:40a [facility] Internal Bill Caldwell, 723.1 Cervicalgia Medicine - Ccmozzy Bello 728.9 Muscle Disorders Unspec 350.2 Face Pain Atypical 728.85 Spasm Muscle Office Visit 08/17/2014 12:40p Customer Service Sales Consultant Internal Bill Caldwell, 350.2 Face Pain Medicine - Shaheen Bello Atypical 351.8 Nerve Disorder Facial Other 521.00 Unspecified Dental Caries V13.02 Personal History Urinary Tract Infection
[2019-05-12 17:51] LABS: ABS Basophils 0.1 10^3/ul (0-0.2); ABS Eosinophils 0.8 10^3/ul (0-0.6); ABS Lymphocytes 2.3 10^3/ul (1.0-4.8); ABS Monocytes 0.4 10^3/ul (0-0.8); ABS Neutrophils 4.3 10^3/ul (1.5-7.7); Hematocrit 39 % (35-47); Hemoglobin 13.3 g/dL (12.0-16.0); Lymphocyte % 29.5 %; Mean Corpuscular HGB Conc 34 g/dL (31-36); Mean Corpuscular Hemoglobin 32 pg (27-31); Mean Corpuscular Volume 94 fL (80-97); Mean Platelet Volume 7.9 fL (7.4-10.4); Nucleated Red Blood Cells % 0.1; Platelet Count 294 10^3/uL (150-450); Red Blood Count 4.12 10^6 /uL (3.70-4.87); Red Cell Distribution Width 14 % (10-15); White Blood Count 7.9 10^3/uL (3.5-10.8)
[2019-05-12 18:07] LABS: ALT 9 U/L (7-52); AST 14 U/L (13-39); Albumin 4.6 g/dL (3.2-5.2); Albumin/Globulin Ratio 1.9 (1-3); Alkaline Phosphatase 49 U/L (34-104); Anion Gap 5 mmol/L (2-11); BUN/Creatinine Ratio 15.5 (8-20); Blood Urea Nitrogen 11 mg/dL (6-24); C Reactive Protein < 1.00 mg/L (<8.01); CO2 Carbon Dioxide 27 mmol/L (22-32); Calcium 9.4 mg/dL (8.6-10.3); Chloride 106 mmol/L (101-111); EGFR African American 109.2 (>60); EGFR Non-African American 90.3 (>60); Globulin 2.4 g/dL (2-4); Glucose 111 mg/dL (70-100); Sodium 138 mmol/L (135-145)
[2019-05-12 18:13] LABS: HCG Pregnancy < 0.60 mIU/mL
[2019-05-12] MEDS ORDERED: oxyCODONE TAB* 5 MG TAB PO ONE ×2 (18:42→22:07)
[2019-05-12] MEDS ORDERED: Ondansetron ODT TAB* 4 MG PO ONE (18:42)
[2019-05-12 19:46] LABS: Urine Appearance Clear; Urine Bilirubin Negative (Negative); Urine Blood Negative (Negative); Urine Color Straw; Urine Glucose Negative (Negative); Urine Ketones Negative (Negative); Urine Nitrite Negative (Negative); Urine Protein Negative (Negative); Urine Specific Gravity 1.004 (1.010-1.030); Urine Urobilinogen Negative (Negative)
[2019-05-12] MEDS ORDERED: Morphine 4 MG/ML VIAL (1 ml) 4 MG/ML VIAL IV ONE (20:05)
[2019-05-12] MEDS ORDERED: NS 0.9% 1000 ML** 1,000 ML IV ONE (20:17)
[2019-05-12] MEDS ORDERED: NS 0.9% 1000 ML** 1,000 ML IV.FLUID IV ONE (20:19)
--- NOTE | 2019-05-12 20:45 | ED ---
Abdominal Pain/Female - HPI Summary HPI Summary: Patient complains of persistent and constant bilateral lower abdominal pain 1 month. Patient states pain is constant with spikes, progressive, associated with nausea when the pain is worst. Also complains of dyspareunia. Denies fever, cough, sore throat, CP, SOB, V/D, change in urine, change in BM, vaginal discharge or bleeding. Evaluated here 04/16/19 with diagnosis of right ovarian cyst and possible endometrioma per CT abdomen and pelvis and transvaginal ultrasound. Patient was given Rx for Lortab and advised to follow up with OB/ [facility]. Patient then saw Dr. Rashid RE[facility]. Patient states she was given Rx for progesterone which she took for 2 days and then stopped because it made her feel bad. Patient also given prescription for tramadol which reduced pain, but ran out of tramadol 2 days ago. Patient Has been taking naproxen and Advil for pain since then with no relief. Patient has appointment scheduled with OB/ [facility] on 05/31 for follow-up ultrasound. - History of Current Complaint Chief Complaint: EDAbdPain Stated Complaint: ABD PAIN, PELVIC PAIN PER PT Time Seen by Provider: 05/12/19 18:02 Hx Obtained From: Patient Hx Last Menstrual Period: dec 04 Onset/Duration: Gradual Onset, Lasting Weeks Timing: Constant Severity Initially: Severe Severity Currently: Severe Pain Intensity: 8 Pain Scale Used: 0-10 Numeric Location: Discrete At: RLQ, Discrete At: LLQ Radiates: No Character: Sharp, Cramping Aggravating Factor(s): Nothing Alleviating Factor(s): Nothing Associated Signs and Symptoms: Positive: Decreased Appetite, Nausea Allergies/Adverse Reactions: Allergies Allergy/AdvReac Type Severity Reaction Status Date / Time furosemide [From Lasix] Allergy Anaphylatic Verified 05/12/19 16:33 Shock levofloxacin [From Levaquin] Allergy Anaphylatic Verified 05/12/19 16:33 Shock Sulfa (Sulfonamide AdvReac Itching Verified 05/12/19 16:33 Antibiotics) PMH/Surg Hx/FS Hx/Imm Hx Endocrine/Hematology History: Denies: Hx Diabetes, Hx Thyroid Disease Cardiovascular History: Denies: Hx Hypertension, Hx Pacemaker/ICD Respiratory History: Denies: Hx Asthma, Hx Chronic Obstructive Pulmonary Disease (COPD) GI History: Denies: Hx Ulcer History: Reports: Hx Renal Disease Musculoskeletal History: Reports: Hx Back Problems Sensory History: Denies: Hx Hearing Aid Opthamlomology History: Denies: Hx Eye Prosthesis Neurological History: Denies: Hx Dementia Psychiatric History: Denies: Hx Panic Disorder - Cancer History Cancer Type, Location and Year: skin Hx Chemotherapy: No Hx Radiation Therapy: No - Surgical History Surgery Procedure, Year, and Place: tubal ligation;. benign mass from right maxillary sinus, - Immunization History Date of Tetanus Vaccine: unknown Infectious Disease History: No Infectious Disease History: Denies: Hx Clostridium Difficile, Hx Hepatitis, Hx Human Immunodeficiency Virus (HIV), Hx of Known/Suspected MRSA, Hx Shingles, Hx Tuberculosis, Hx Known/ Suspected VRE, Hx Known/Suspected VRSA, History Other Infectious Disease, Traveled Outside the [place] in Last 30 Days - Family History Known Family History: Positive: Unknown - adopted, Non-Contributory - Social History Alcohol Use: None Hx Substance Use: No Substance Use Type: Reports: None Hx Tobacco Use: Yes Smoking Status (MU): Light Every Day Tobacco Smoker Review of Systems Constitutional: Negative Eyes: Negative ENT: Negative Cardiovascular: Negative Respiratory: Negative Positive: Abdominal Pain, Nausea Genitourinary: Negative Musculoskeletal: Negative Skin: Negative Neurological: Negative Psychological: Normal All Other Systems Reviewed And Are Negative: Yes Physical Exam - Summary Physical Exam Summary: Tenderness to palpation in bilateral lower quadrants and suprapubically. Abdominal exam was unremarkable. Triage Information Reviewed: Yes Vital Signs On Initial Exam: Initial Vitals Temp Pulse Resp BP Pulse Ox 98.2 F 87 16 118/85 98 05/12/19 16:25 05/12/19 16:25 05/12/19 16:25 05/12/19 16:25 05/12/19 16:25 Vital Signs Reviewed: Yes Appearance: Positive: Well-Appearing Skin: Positive: Warm Head/Face: Positive: Normal Head/Face Inspection Eyes: Positive: Normal Neck: Positive: Supple Respiratory/Lung Sounds: Positive: Clear to Auscultation Cardiovascular: Positive: Normal Abdomen Description: Positive: Other: Musculoskeletal: Positive: Normal Neurological: Positive: Normal Psychiatric: Positive: Normal AVPU Assessment: Alert - Kinsman Coma Scale Best Eye Response: 4 - Spontaneous Best Motor Response: 6 - Obeys Commands Best Verbal Response: 5 - Oriented Coma Scale Total: 15 Diagnostics - Vital Signs Vital Signs Temp Pulse Resp BP Pulse Ox 05/12/19 20:20 18 05/12/19 20:00 64 97 05/12/19 19:58 124/68 05/12/19 19:30 70 98 05/12/19 18:58 124/80 05/12/19 18:28 73 114/73 97 05/12/19 18:00 76 99 05/12/19 17:58 77 129/68 98 05/12/19 17:57 71 98 05/12/19 16:25 98.2 F 87 16 118/85 98 - Laboratory Lab Results: Lab Results 05/12/19 05/12/19 05/12/19 Range/Units 17:30 17:30 17:30 WBC 7.9 (3.5-10.8) 10^3/uL RBC 4.12 (3.70-4.87) 10^6 /uL Hgb 13.3 (12.0-16.0) g/dL Hct 39 (35-47) % MCV 94 (80-97) fL MCH 32 H (27-31) pg MCHC 34 (31-36) g/dL RDW 14 (10-15) % Plt Count 294 (150-450) 10^3/uL MPV 7.9 (7.4-10.4) fL Neut % (Auto) 54.3 % Lymph % (Auto) 29.5 % Woods % (Auto) 4.9 % Eos % (Auto) 10.0 % Baso % (Auto) 1.3 % Absolute Neuts (auto) 4.3 (1.5-7.7) 10^3/ul Absolute Lymphs (auto) 2.3 (1.0-4.8) 10^3/ul Absolute Monos (auto) 0.4 (0-0.8) 10^3/ul Absolute Eos (auto) 0.8 H (0-0.6) 10^3/ul Absolute Basos (auto) 0.1 (0-0.2) 10^3/ul Absolute Nucleated RBC 0.0 10^3/ul Nucleated RBC % 0.1 Sodium 138 (135-145) mmol/L Potassium 4.0 (3.5-5.0) mmol/L Chloride 106 (101-111) mmol/L Carbon Dioxide 27 (22-32) mmol/L Anion Gap 5 (2-11) mmol/L BUN 11 (6-24) mg/dL Creatinine 0.71 (0.51-0.95) mg/dL Est GFR ( Amer) 109.2 (>60) Est GFR (Non-Af Amer) 90.3 (>60) BUN/Creatinine Ratio 15.5 (8-20) Glucose 111 H (70-100) mg/dL Lactic Acid 0.9 (0.5-2.0) mmol/L Calcium 9.4 (8.6-10.3) mg/dL Total Bilirubin 0.70 (0.2-1.0) mg/dL AST 14 (13-39) U/L ALT 9 (7-52) U/L Alkaline Phosphatase 49 (34-104) U/L C-Reactive Protein < 1.00 (<8.01) mg/L Total Protein 7.0 (6.4-8.9) g/dL Albumin 4.6 (3.2-5.2) g/dL Globulin 2.4 (2-4) g/dL Albumin/Globulin Ratio 1.9 (1-3) Lipase 26 (11.0-82.0) U/L Beta HCG, Quant < 0.60 mIU/mL Urine Color Urine Appearance Urine pH (5-9) Ur Specific [place] (1.010-1.030) Urine Protein (Negative) Urine Ketones (Negative) Urine Blood (Negative) Urine Nitrate (Negative) Urine Bilirubin (Negative) Urine Urobilinogen (Negative) Ur Leukocyte Esterase (Negative) Urine Glucose (Negative) 05/12/19 Range/Units 19:27 WBC (3.5-10.8) 10^3/uL RBC (3.70-4.87) 10^6 /uL Hgb (12.0-16.0) g/dL Hct (35-47) % MCV (80-97) fL MCH (27-31) pg MCHC (31-36) g/dL RDW (10-15) % Plt Count (150-450) 10^3/uL MPV (7.4-10.4) fL Neut % (Auto) % Lymph % (Auto) % Woods % (Auto) % Eos % (Auto) % Baso % (Auto) % Absolute Neuts (auto) (1.5-7.7) 10^3/ul Absolute Lymphs (auto) (1.0-4.8) 10^3/ul Absolute Monos (auto) (0-0.8) 10^3/ul Absolute Eos (auto) (0-0.6) 10^3/ul Absolute Basos (auto) (0-0.2) 10^3/ul Absolute Nucleated RBC 10^3/ul Nucleated RBC % Sodium (135-145) mmol/L Potassium (3.5-5.0) mmol/L Chloride (101-111) mmol/L Carbon Dioxide (22-32) mmol/L Anion Gap (2-11) mmol/L BUN (6-24) mg/dL Creatinine (0.51-0.95) mg/dL Est GFR ( Amer) (>60) Est GFR (Non-Af Amer) (>60) BUN/Creatinine Ratio (8-20) Glucose (70-100) mg/dL Lactic Acid (0.5-2.0) mmol/L Calcium (8.6-10.3) mg/dL Total Bilirubin (0.2-1.0) mg/dL AST (13-39) U/L ALT (7-52) U/L Alkaline Phosphatase (34-104) U/L C-Reactive Protein (<8.01) mg/L Total Protein (6.4-8.9) g/dL Albumin (3.2-5.2) g/dL Globulin (2-4) g/dL Albumin/Globulin Ratio (1-3) Lipase (11.0-82.0) U/L Beta HCG, Quant mIU/mL Urine Color Straw Urine Appearance Clear Urine pH 8.0 (5-9) Ur Specific [place] 1.004 L (1.010-1.030) Urine Protein Negative (Negative) Urine Ketones Negative (Negative) Urine Blood Negative (Negative) Urine Nitrate Negative (Negative) Urine Bilirubin Negative (Negative) Urine Urobilinogen Negative (Negative) Ur Leukocyte Esterase Negative (Negative) Urine Glucose Negative (Negative) Result Diagrams: 05/12/19 17:30 05/12/19 17:30 Lab Statement: Any lab studies that have been ordered have been reviewed, and results considered in the medical decision making process. Abdominal Pain Fem Course/Dx - Course Course Of Treatment: Patient complains of persistent and constant bilateral lower abdominal pain 1 month. Patient states pain is constant with spikes, progressive, associated with nausea when the pain is worst. Also complains of dyspareunia. Denies fever, cough, sore throat, CP, SOB, V/D, change in urine, change in BM, vaginal discharge or bleeding. Evaluated here 04/16/19 with diagnosis of right ovarian cyst and possible endometrioma per CT abdomen and pelvis and transvaginal ultrasound. Patient was given Rx for Lortab and advised to follow up with [facility]. Patient then saw Dr. Rashid REFERENCE DATA EXPERT. Patient states she was given Rx for progesterone which she took for 2 days and then stopped because it made her feel bad. Patient also given prescription for tramadol which reduced pain, but ran out of tramadol 2 days ago. Patient Has been taking naproxen and Advil for pain since then with no relief. Patient has appointment scheduled with RE[facility]PERT on 05/31 for follow-up ultrasound. Vital signs within normal limits. Labs unremarkable. Transvaginal ultrasound positive for small blood calculated fibroid. Intervally resolved bilateral hemorrhagic cysts since prior transvaginal ultrasound on 04/16. Rx for pain control and follow-up with Dr. Rashid REFERENCE DATA EXPERT. Pt understands and approves of plan. - Diagnoses Provider Diagnoses: Fibroid, Endometrioma Discharge - Sign-Out/Discharge Documenting (check all that apply): Patient Departure Patient Received Moderate/Deep Sedation with Procedure: No - Discharge Plan Condition: Stable Disposition: HOME Prescriptions: Ondansetron ODT TAB* [Zofran 4 MG Odt TAB*] 4 mg PO Q8H PRN 4 Days #14 tab.odt PRN Reason: Nausea Oxycodone HCl 5 mg PO TID 4 Days #12 tablet MDD 4 tabs Patient Education Materials: Pelvic Pain in Women (ED) Referrals: No Primary Care Phys,NOPCP [Primary Care Provider] - Additional Instructions: Follow-up with Dr. Rashid your REFER[facility] DATA [facility] for further evaluation. Alternate ibuprofen and Tylenol every 3 hours for pain in addition to pain medication. Return to the ED for any new or worsening symptoms. - Billing Disposition and Condition Condition: STABLE Disposition: Home
[2019-05-12] MEDS ORDERED: Ketorolac INJ* 30 MG/ML 1 ML VIAL IV ONE (21:37)
[2019-05-12 22:21] VITALS: BP 111/62
== END 2019-05-12 22:26 | disposition home or self-care (01) ==
LOC: ED 16:12
DX: D25.9 Leiomyoma of uterus, unspecified (principal); N80.9 Endometriosis, unspecified; N94.10 Unspecified dyspareunia; R11.0 Nausea; Z88.1 Allergy status to other antibiotic agents; Z88.2 Allergy status to sulfonamides; Z88.8 Allergy status to other drugs, medicaments and biological substances; F17.200 Nicotine dependence, unspecified, uncomplicated
CPT/HCPCS: 36415; 76830; 80053; 81003; 83605; 83690; 84702; 85025; 86140; 96361; 96374; 96375; 99284; A9270-GY; J1885; J2270

== ENCOUNTER 2019-08-12 16:16 | Emergency (ER) | payer OTHER ==
--- OUTSIDE RECORDS SUMMARY | 2019-08-12 16:31 | XMS REPORT | Continuity of Care Document ---
:1975 External Reference #:[id number] Author Name Zeke Zamarripa MD (transmitted by agent of provider Amaya Kuhn) Address [address] [place] [address] Care Team Providers Name Role Phone Karol Dodd M.D. - Sports Care Team Information Cook Apprentice [phone] Medicine Juice Swann MD - Neurological Care Team Information Cook Apprentice [phone] Surgery Sidney Dos Santos MD - Interventional Care Team Information Cook Apprentice [phone] [facility] - Pain Care Team Information Cook Apprentice [phone] Kingston Mcmahan MD - Internal Care Team Information Cook Apprentice [phone] Medicine Ca Mallory DO - Hospitalist Care Team Information Cook Apprentice Problems Active Problems Provider Date Backache Bill Caldwell M.D. Onset: 07/21/2015 Breast lump Kingston Mcmahan M.D.,FACP Onset: 11/27/2016 Note: left Weight decreased Zeke Zamarripa MD Onset: 06/29/2019 Constipation Zeke Zamarripa MD Onset: 06/29/2019 Cyst of left ovary Zeke Zamarripa MD Onset: 06/29/2019 Left lower quadrant pain Zeke Zamarripa MD Onset: 06/29/2019 Social History Type Date Description Comments Sex Unknown Tobacco Use Start: Unknown Light tobacco smoker (10 or fewer cigarettes/day) Smoking Status Reviewed: 07/27/19 Light tobacco smoker (10 or fewer cigarettes/day) [...] Medications SIG Qnty Indications Ordering Provider Date Miralax 17 gm by mouth 510gm R10.32 Zeke Zamarripa MD 06/29/2019 [id number] Powder daily Senna-Lax take 1 tab daily 30tabs R10.32 Zeke Zamarripa MD 06/29/2019 8.6mg Tablets Tramadol HCL one tablet by 90tabs R10.32 Zeke Zamarripa MD 06/29/2019 50mg mouth q8 as Tablets needed for moderate pain Foam Ring 2" use when sitting M53.87 Henok Rollins NP 05/23/2015 2" Misc for comfort Ibuprofen as needed Unknown 200mg Capsules Tylenol 2 tablets every 4 Unknown 325mg Capsules hours as needed for pain History Medications Tramadol HCL one tablet po 30tabs R10.32 Asaf Rashid, 05/07/2019 - 50mg Tablets q6 prn carly DEAL 06/29/2019 pain Norethindrone Acetate 1 po qd 30tabs N83.202 Imelda Beth, 04/29/2019 - 5mg TUBING TESTER-Cde 05/06/2019 Tablets Tramadol HCL 1-2 tablet 14tabs Imelda Beth 04/22/2019 - 50mg Tablets every 6 hours TUBING TESTER-Cde 06/29/2019 as needed for pain Tramadol HCL 1 tablet every 30tabs Asaf Rashid 04/19/2019 - 50mg Tablets 6 hours as 06/29/2019 needed for pain Medications Administered in Office Medication SIG Qnty Indications Ordering Provider Date Depomedrol 40MG Segun Bustamante MD 02/27/2017 Injection Immunizations CPT Code Status Date Vaccine Lot # [id number] Given 11/03/2016 Influ Virus Vaccine, Quadrivalent, Split Virus, Im Fluzone not PF Vital Signs Date Vital Result Comment 07/27/2019 7:57am Height 67.5 inches 5'7.50" Weight 156.12 lb Heart Rate 93 /min BP Systolic 119 mmHg BP Diastolic 75 mmHg Body Temperature 98.4 F O2 % BldC Oximetry 99 % BMI (Body Mass Index) 24.1 kg/m2 06/29/2019 9:25am Height 67.5 inches 5'7.50" Weight 154.00 lb Heart Rate 106 /min BP Systolic 112 mmHg BP Diastolic 75 mmHg Body Temperature 98.4 F O2 % BldC Oximetry 98 % BMI (Body Mass Index) 23.8 kg/m2 Results Test Date Facility Test Result H/L Range Note Laboratory test 07/15/2019 [facility] TSH 1.10 mcIU/mL Normal 0.34-5.[address] ([place] [address] Stim Horm) [phone] Free T4 (Free Thyroxine) 1.02 ng/dL Normal 0.61-1.12 Laboratory test 06/23/2019 [facility] Poc , Negative Negative [address] [place] [address] [phone] Poc Urinalysis 06/23/2019 [facility] Poc Glucose, Negative Negative [address] [place] [address] [phone] Poc Bilirubin, Urine Negative Negative Poc Ketone, Urine Negative Negative Poc Specific [place], Urine 1.015 Normal 1.010-1.030 Poc Blood, Urine Negative Negative Poc pH, Urine 8.0 Normal 5-9 Poc Protein, Urine Negative Negative Poc Urobilinogen, Urine 0.2 Negative Poc Nitrite, Urine Negative Negative Poc Leukocytes, Urine Negative Negative Poc Color, Urine Yellow Poc Clarity, Urine Clear 2 CBC Auto 05/12/2019 [facility] White Blood 7.9 10^3/uL Normal 3.5-10.[address] [place] [address] [phone] Red Blood Count 4.12 10^6/uL Normal 3.70-4.87 Hemoglobin 13.3 g/dL Normal 12.0-16.0 Hematocrit 39 % Normal 35-47 Mean Corpuscular Volume 94 fL Normal 80-97 Mean Corpuscular Hemoglobin 32 pg High 27-31 Mean Corpuscular HGB Conc 34 g/dL Normal 31-36 Red Cell Distribution Width 14 % Normal 10-15 Platelet Count 294 10^3/uL Normal 150-450 Mean Platelet Volume 7.9 fL Normal 7.4-10.4 Abs Neutrophils 4.3 10^3/uL Normal 1.5-7.7 Abs Lymphocytes 2.3 10^3/uL Normal 1.0-4.8 Abs Monocytes 0.4 10^3/uL Normal 0-0.8 Abs Eosinophils 0.8 10^3/uL High 0-0.6 Abs Basophils 0.1 10^3/uL Normal 0-0.2 Abs Nucleated RBC 0.0 10^3/uL Granulocyte % 54.3 % Lymphocyte % 29.5 % Monocyte % 4.9 % Eosinophil % 10.0 % Basophil % 1.3 % Nucleated Red Blood Cells % 0.1 Laboratory test 05/12/2019 [facility] Lactic Acid 0.9 mmol/L Normal 0.5-2.0 3 finding [address] [place] [address] [phone] Comp Metabolic 05/12/2019 [facility] Sodium 138 mmol/L Normal 135-145 Panel [address] [place] [address] [phone] Potassium 4.0 mmol/L Normal 3.5-5.0 Chloride 106 mmol/L Normal 101-111 Co2 Carbon Dioxide 27 mmol/L Normal 22-32 Anion Gap 5 mmol/L Normal 2-11 Glucose 111 mg/dL High 70-100 Blood Urea Nitrogen 11 mg/dL Normal 6-24 Creatinine 0.71 mg/dL Normal 0.51-0.95 BUN/Creatinine Ratio 15.5 Normal 8-20 Calcium 9.4 mg/dL Normal 8.6-10.3 Total Protein 7.0 g/dL Normal 6.4-8.9 Albumin 4.6 g/dL Normal 3.2-5.2 Globulin 2.4 g/dL Normal 2-4 Albumin/Globulin Ratio 1.9 Normal 1-3 Total Bilirubin 0.70 mg/dL Normal 0.2-1.0 Alkaline Phosphatase 49 U/L Normal 34-104 Alt 9 U/L Normal 7-52 Ast 14 U/L Normal 13-39 Egfr Non- 90.3 >60 Egfr 109.2 >60 4 Laboratory test 05/12/2019 [facility] Lipase 26 U/L Normal 11.0-82.0 finding [address] [place] [address] [phone] C Reactive Protein < 1.00 mg/L Normal <8.01 HCG < 0.60 mIU/mL 5 Urinalysis Profile 05/12/2019 [facility] Urine Color Straw [address] [place] [address] [phone] Urine Appearance Clear Urine Specific [place] 1.004 Low 1.010-1.030 Urine pH 8.0 Normal 5-9 Urine Urobilinogen Negative Negative Urine Ketones Negative Negative Urine Protein Negative Negative Urine Leukocytes Negative Negative Urine Blood Negative Negative Urine Nitrite Negative Negative Urine Bilirubin Negative Negative Urine Glucose Negative Negative GC/Chlamydia 04/19/2019 [facility] Chlamydia Negative Negative Amplified Rna [address] [place] [address] [phone] Neisseria gonorrhoeae (GC) Rna Negative Negative 1 Pig Furnace Operator: [id number] Test Disclaimer: Positive bacteria, red blood cells, white blood cells, early , low specific gravity, and other factors may cause false positive or negative results. It is recommended to retest unexpected and borderline results with a serum test when applicable. If is still suspected, please repeat test after 48 to 72 hours. 2 Pig Furnace Operator: [id number] [address] [facility] Severe Sepsis and Septic Shock Management Bundle Measure requires all lactic acids initially measuring >2.0 mmol/L be repeated. 4 Because ethnic data is not always readily [...] 15-29 5 Kidney failure <15 (or dialysis) 5 <5.0 Negative 5.0 - 25.0 Indeterminate (Repeat testing recommended after 72 hours) >25.0 Positive Perimenopausal women can display HCG levels of up to 20 mIU/mL Procedures Date Code Description Status 02/20/2016 [id number] Mammogram Completed Medical Devices Description No Information Available Encounters Type Date Location Provider Dx Diagnosis Office Visit 06/24/2019 [facility] Asaf Rashid MD R10.2 Pelvic and 10:00a [facility] perineal pain R10.31 Right lower quadrant pain R10.32 Left lower quadrant pain Office Visit 05/07/2019 10:00a [facility] Asaf Rashid, R10.32 Left lower [facility] MD quadrant pain N83.202 Unspecified ovarian cyst, left side Office Visit 05/07/2019 9:00a [facility] Imelda Beth, R10.2 Pelvic and [facility] TUBING TESTER-Cde perineal pain N83.202 Unspecified ovarian cyst, left side Office Visit 04/29/2019 9:00a [facility] Imelda Beth, N83.202 Unspecified [facility] TUBING TESTER-Cde ovarian cyst, left side R10.2 Pelvic and perineal pain R10.32 Left lower quadrant pain Office Visit 04/19/2019 4:00p [facility] Radha Mullins, R10.2 Pelvic and [facility] N.P. perineal pain N83.202 Unspecified ovarian cyst, left side N93.9 Abnormal uterine and vaginal bleeding, unspecified Assessments Date Code Description Provider 07/27/2019 D25.9 Leiomyoma of uterus, unspecified Zeke Zamarripa MD 07/27/2019 R10.32 Left lower quadrant pain Zeke Zamarripa MD 07/27/2019 K59.00 Constipation, unspecified Zeke Zamarripa MD 06/29/2019 R10.32 Left lower quadrant pain Zeke Zamarripa MD 06/29/2019 N83.202 Unspecified ovarian cyst, left side Zeke Zamarripa MD 06/29/2019 K59.00 Constipation, unspecified Zeke Zamarripa MD 06/29/2019 R63.4 Abnormal weight loss Zeke Zamarripa MD 06/24/2019 R10.2 Pelvic and perineal pain Asaf Rashid MD 06/24/2019 R10.31 Right lower quadrant pain Asaf Rashid MD 06/24/2019 R10.32 Left lower quadrant pain Asaf Rashid MD 05/07/2019 R10.2 Pelvic and perineal pain AUDREY CooperP-Cde 05/07/2019 R10.32 Left lower quadrant pain Asaf Rashid MD 05/07/2019 N83.202 Unspecified ovarian cyst, left side Asaf Rashid MD 05/07/2019 N83.202 Unspecified ovarian cyst, left side Imelda Beth, [facility] [place] 04/29/2019 N83.202 Unspecified ovarian cyst, left side Imelda Beth, [facility]- e 04/29/2019 R10.2 Pelvic and perineal pain Imelda Beth, [facility] [place] 04/29/2019 R10.32 Left lower quadrant pain Imelda Beth, [facility] [place] 04/19/2019 R10.2 Pelvic and perineal pain Radha Mullins, N.P. 04/19/2019 N83.202 Unspecified ovarian cyst, left side Radha Mullins, N.P. 04/19/2019 N93.9 Abnormal uterine and vaginal bleeding, Radha Mullins, N.P. unspecified Plan of Treatment Future Appointment(s):10/11/2019 8:00 am - Zeke Zamarripa MD at [facility] Internal Medicine - [address]/27/2019 - Zeke Zamarripa, MDD25.9 Leiomyoma of uterus, unspecifiedComments:Referred for second opinion about your left lower abdominal pain symptoms.Referral:Deb Woody MD, youth development specialist/Phys/OsteoFollow up:2 months.R10.32 Left lower quadrant painK59.00 Constipation, unspecified Functional Status Description No Information Available Mental Status Description No Information Available Referrals Refer to Reason for Referral Status Appt Date Deb Woody MD LLQ pain that is much worse with menstrual Created 00/ cycle, fibroid [address] [place] [address] [phone]
--- OUTSIDE RECORDS SUMMARY | 2019-08-12 16:31 | XMS REPORT | Continuity of Care Document ---
:1975 External Reference #:[id number] Author Name Zeke Zamarripa MD (transmitted by agent of provider Kiki Sweeney) Address [address] [place] [address] Care Team Providers Name Role Phone Karol Dodd M.D. - Sports Care Team Information Second Time Worker Medicine uJice Swann MD - Neurological Care Team Information Second Time Worker Surgery Sidney Dos Santos MD - Interventional Care Team Information Second Time Worker Pain Medicine [facility] - Pain Care Team Information Second Time Worker [phone] Kingston Mcmahan MD - Internal Care Team Information Second Time Worker Medicine Ca Mallory DO - Hospitalist Care Team Information Second Time Worker Problems Active Problems Provider Date Backache Bill [...] (10 or fewer cigarettes/day) Smoking Status Reviewed: 06/29/19 Light tobacco smoker (10 or fewer cigarettes/day) [...] 06/29/2019 8.6mg Tablets Tramadol HCL one tablet po q8 30tabs R10.32 Zeke Zamarripa MD 06/29/2019 50mg prn for moderate Tablets pain Foam Ring 2" use when sitting M53.87 Henok Rollins NP 05/23/2015 2" Misc for comfort Ibuprofen as needed Unknown 200mg Capsules Tylenol 2 tablets every 4 Unknown 325mg Capsules hours as needed for pain History Medications Tramadol HCL one tablet po 30tabs R10.32 Asaf Rashid, 05/07/2019 - 50mg Tablets q6 prn strong 06/29/2019 pain Norethindrone Acetate 1 po qd 30tabs N83.202 Imelda Beth, 04/29/2019 - 5mg [employer]ELOPER-Cde 05/06/2019 Tablets Tramadol HCL 1-2 tablet 14tabs Imelda Beth 04/22/2019 - 50mg Tablets every 6 hours [employer]Cde 06/29/2019 as needed for pain Tramadol HCL 1 tablet every 30tabs Asaf Rashid, 04/19/2019 - 50mg Tablets 6 hours as 06/29/2019 needed for pain Medications Administered in Office Medication SIG Qnty Indications Ordering Provider Date Depomedrol 40MG Segun Bustamante MD 02/27/2017 Injection Immunizations CPT Code Status Date Vaccine Lot # [id number] Given 11/03/2016 Influ Virus Vaccine, Quadrivalent, Split Virus, Im Fluzone not PF Vital Signs Date Vital Result Comment 06/29/2019 9:25am Height 67.5 inches 5'7.50" Weight 154.00 lb Heart Rate 106 /min BP Systolic 112 mmHg BP Diastolic 75 mmHg Body Temperature 98.4 F O2 % BldC Oximetry 98 % BMI (Body Mass Index) 23.8 kg/m2 06/24/2019 9:54am Height 68.5 inches 5'8.50" Weight 160.00 lb Heart Rate 87 /min BP Systolic 113 mmHg BP Diastolic 69 mmHg O2 % dC Oximetry 99 % BMI (Body Mass Index) 24.0 kg/m2 Results Test Date Facility Test Result H/L Range Note Laboratory test 06/23/2019 [facility] Poc Negative Negative [address] , [place] [address] Urine [phone] Poc Urinalysis 06/23/2019 [facility] Poc Glucose, Negative Negative [address] [place] [address] [phone] Poc Bilirubin, Urine Negative Negative Poc Ketone, Urine Negative Negative Poc Specific [place], Urine 1.015 Normal 1.010-1.030 Poc Blood, Urine Negative Negative Poc pH, Urine 8.0 Normal 5-9 Poc Protein, Urine Negative Negative Poc Urobilinogen, Urine 0.2 Negative Poc Nitrite, Urine Negative Negative Poc Leukocytes, Urine Negative Negative Poc Color, Urine Yellow Poc Clarity, Urine Clear 2 CBC Auto 05/12/2019 [facility] White Blood 7.9 10^3/uL Normal 3.5-10.[address] [place] [address] [phone] Red Blood Count 4.12 10^6/uL Normal 3.70-4.87 [...] Blood Cells % 0.1 Laboratory test 05/12/2019 [facility] Lactic Acid 0.9 mmol/L Normal 0.5-2.0 3 finding [address] [place] [address] [phone] Comp Metabolic 05/12/2019 [facility] Sodium 138 mmol/L Normal 135-145 Panel [address] [place] [address] [phone] Potassium 4.0 mmol/L Normal 3.5-5.0 Chloride 106 [...] Egfr 109.2 >60 4 Laboratory test 05/12/2019 [facility] Lipase 26 U/L Normal 11.0-82.0 finding [address] [place] [address] [phone] C Reactive Protein < 1.00 mg/L Normal <8.01 HCG < 0.60 mIU/mL 5 Urinalysis Profile 05/12/2019 [facility] Urine Color Straw [address] [place] [address] [phone] Urine Appearance Clear Urine Specific [address] 1.004 Low 1.010-1.030 Urine pH 8.0 Normal 5-9 Urine Urobilinogen Negative Negative Urine Ketones Negative Negative Urine Protein Negative Negative Urine Leukocytes Negative Negative Urine Blood Negative Negative Urine Nitrite Negative Negative Urine Bilirubin Negative Negative Urine Glucose Negative Negative GC/Chlamydia 04/19/2019 [facility] Chlamydia Negative Negative Amplified Rna [address] trachomatis Rna [place], [place] [id number] [phone] Neisseria gonorrhoeae (GC) Rna Negative Negative 1 Baggage Clerk: [id number] Test Disclaimer: Positive bacteria, red blood cells, white blood cells, early , low specific gravity, and other factors may cause false positive or negative results. It is recommended to retest unexpected and borderline results with a serum test when applicable. If is still suspected, please repeat test after 48 to 72 hours. 2 Baggage Clerk: [id number] [facility] Severe Sepsis and Septic Shock Management [...] mIU/mL Procedures Date Code Description Status 02/20/2016 [id number] Mammogram Completed Medical Devices Description No Information Available Encounters Type Date Location Provider Dx Diagnosis Office Visit 05/07/2019 [facility] Asaf Rashid MD R10.32 Left lower 10:00a [facility] quadrant pain N83.202 Unspecified ovarian cyst, left side Office Visit 05/07/2019 9:00a [facility] Imelda Beth, R10.2 [facility] [employer]Cde perineal pain N83.202 Unspecified ovarian cyst, left side Office Visit 04/29/2019 9:00a [facility] Imelda Beth, N83.202 Unspecified [facility] [employer]Cde ovarian cyst, left side R10.2 Pelvic and perineal pain R10.32 Left lower quadrant pain Office Visit 04/19/2019 4:00p [facility] Radha Mullins, R10.2 [facility] N.P. perineal pain N83.202 Unspecified ovarian cyst, left side N93.9 Abnormal uterine and vaginal bleeding, unspecified Assessments Date Code Description Provider 06/29/2019 R10.32 Left lower quadrant pain Zeke Zamarripa MD 06/29/2019 N83.202 Unspecified ovarian cyst, left side Zeke Zamarripa MD 06/29/2019 K59.00 Constipation, unspecified Zeke Zamarripa MD 06/29/2019 R63.4 Abnormal weight loss Zeke Zamarripa MD 06/24/2019 R10.2 Pelvic and perineal pain Asaf Rashid MD 05/07/2019 R10.32 Left lower quadrant pain Asaf Rashid MD 05/07/2019 R10.2 Pelvic and perineal pain Imelda Beth, [employer]Cde 05/07/2019 N83.202 Unspecified ovarian cyst, left side Asaf Rashid MD 05/07/2019 N83.202 Unspecified ovarian cyst, left side Imelda Beth, [employer]- Cde 04/29/2019 N83.202 Unspecified ovarian cyst, left side Imelda Beth, [employer]EL[employer]- Cde 04/29/2019 R10.2 Pelvic and perineal pain Imelda Beth, [employer]EL[employer]Cde 04/29/2019 R10.32 Left lower quadrant pain Imelda Beth, [employer]ELOPER[employer]Cde 04/19/2019 R10.2 Pelvic and perineal pain Radha Mullins N.P. 04/19/2019 N83.202 Unspecified ovarian cyst, left side Radha Mullins N.P. 04/19/2019 N93.9 Abnormal uterine and vaginal bleeding, Radha Mullins N.P. unspecified Plan of Treatment Future Appointment(s):07/27/2019 8:00 am - Zeke Zamarripa MD at [facility] Internal Medicine - [address] - Zeke Zamarripa, MDR10.32 Left lower quadrant painNew Medication:Miralax 3350 NF - 17 gm by mouth dailySenna-Lax 8.6 mg - take 1 tab dailyTramadol HCL 50 mg - one tablet po q8 prn for moderate painFollow up:3-4 weeks.N83.202 Unspecified ovarian cyst, left sideK59.00 Constipation, [id number] Abnormal weight loss Functional Status Description No Information Available Mental Status Description No Information Available Referrals Description No Information Available
--- OUTSIDE RECORDS SUMMARY | 2019-08-12 16:31 | XMS REPORT | Continuity of Care Document ---
:1975 External Reference #:[id number] Author Name Asaf Rashid MD (transmitted by agent of provider Sarah Vieyra) Address [facility] [place] [address] Care Team Providers Name Role Phone Karol Dodd M.D. - Sports Care Team Information Dice Maker Medicine Juice Swann MD - Neurological Care Team Information Dice Maker [phone] Surgery Sidney Dos Santos MD - Interventional Care Team Information Dice Maker [phone] Pain Medicine [facility] - Pain Care Team Information Dice Maker [phone] Kingston Mcmahan MD - Internal Care Team Information Dice Maker Medicine Ca Mallory DO - Hospitalist Care Team Information Dice Maker [phone] Problems Active Problems Provider Date Backache Bill Caldwell M.D. Onset: 07/21/2015 Breast lump Kingston Mcmahan M.D.,FACP Onset: 11/27/2016 Note: left Social History Type Date Description Comments Sex Unknown Tobacco Use Start: Unknown Light tobacco smoker (10 or fewer cigarettes/day) Smoking Status Reviewed: 06/24/19 Light tobacco smoker (10 or fewer cigarettes/day) [...] Qnty Indications Ordering Provider Date Tramadol HCL one tablet po q6 30tabs R10.32 Asaf Rashid MD 05/07/2019 50mg prn strong pain Tablets Tramadol HCL 1-2 tablet every 14tabs Imelda Beth, 04/22/2019 50mg 6 hours as needed TMD TEACHER ASSISTANT-Cde Tablets for pain Tramadol HCL 1 tablet [...] 30tabs N83.202 Imelda Beth, 04/29/2019 - 5mg TMD TEACHER ASSISTANT-Cde 05/06/2019 Tablets Medications Administered in Office Medication SIG Qnty Indications Ordering Provider Date Depomedrol 40MG Segun Bustamante MD 02/27/2017 Injection Immunizations CPT Code Status Date Vaccine Lot # [id number] Given 11/03/2016 Influ Virus Vaccine, Quadrivalent, Split Virus, Im Fluzone not PF Vital Signs Date Vital Result Comment 06/24/2019 9:54am Height 68.5 inches 5'8.50" Weight 160.00 lb Heart Rate 87 /min BP Systolic 113 mmHg BP Diastolic 69 mmHg O2 % BldC Oximetry 99 % BMI (Body Mass Index) 24.0 kg/m2 05/07/2019 8:56am Height 68.5 inches 5'8.50" Weight 160.00 lb Heart Rate 128 /min BP Systolic 114 mmHg BP Diastolic 74 mmHg O2 % BldC Oximetry 100 % BMI (Body Mass Index) 24.0 kg/m2 Results Test Date Facility Test Result H/L Range Note Laboratory test 06/23/2019 [facility] Poc Negative Negative [address] , [place] [address] Urine [phone] Poc Urinalysis 06/23/2019 [facility] Poc Glucose, Negative Negative [address] [place] [address] [phone] Poc Bilirubin, Urine Negative Negative Poc Ketone, Urine Negative Negative Poc Specific [place], Urine 1.015 Normal 1.010-1.030 Poc Blood, Urine Negative Negative Poc pH, Urine 8.0 Normal 5-9 Poc Protein, Urine Negative Negative Poc Urobilinogen, Urine 0.2 Negative Poc Nitrite, Urine Negative Negative Poc Leukocytes, Urine Negative Negative Poc Color, Urine Yellow Poc Clarity, Urine Clear 2 CBC Auto 05/12/2019 [facility] White Blood 7.9 10^3/uL Normal 3.5-10.[address] [place] [address] [phone] Red Blood Count 4.12 10^6/uL Normal 3.70-4.87 [...] Blood Cells % 0.1 Laboratory test 05/12/2019 [facility] Lactic Acid 0.9 mmol/L Normal 0.5-2.0 [address] [place] [address] [phone] Comp Metabolic 05/12/2019 [facility] Sodium 138 mmol/L Normal 135-[address] [place] [address] [phone] Potassium 4.0 mmol/L Normal 3.5-5.0 Chloride 106 [...] Egfr 109.2 >60 4 Laboratory test 05/12/2019 [facility] Lipase 26 U/L Normal 11.0-82.0 finding [address] [place] [address] [phone] C Reactive Protein < 1.00 mg/L Normal <8.01 HCG < 0.60 mIU/mL 5 Urinalysis Profile 05/12/2019 [facility] Urine Color Straw [address] [place] [address] [phone] Urine Appearance Clear Urine Specific [place] 1.004 Low 1.010-1.030 Urine pH 8.0 Normal 5-9 Urine Urobilinogen Negative Negative Urine Ketones Negative Negative Urine Protein Negative Negative Urine Leukocytes Negative Negative Urine Blood Negative Negative Urine Nitrite Negative Negative Urine Bilirubin Negative Negative Urine Glucose Negative Negative GC/Chlamydia 04/19/2019 [facility] Chlamydia Negative Negative Amplified Rna [address] [facility] [place] [address] [phone] Neisseria gonorrhoeae (GC) Rna Negative Negative 1 Copyman: [id number] Test Disclaimer: Positive bacteria, red blood cells, white blood cells, early , low specific gravity, and other factors may cause false positive or negative results. It is recommended to retest unexpected and borderline results with a serum test when applicable. If is still suspected, please repeat test after 48 to 72 hours. 2 Copyman: [id number] 3 [facility] Severe Sepsis and Septic Shock Management [...] mIU/mL Procedures Date Code Description Status 02/20/2016 [id number] Mammogram Completed Medical Devices Description No Information Available Encounters Type Date Location Provider Dx Diagnosis Office Visit 05/07/2019 [facility] Asaf Rashid MD R10.32 Left lower 10:00a [facility] quadrant pain N83.202 Unspecified ovarian cyst, left side Office Visit 05/07/2019 9:00a [facility] Imelda Beth, R10.2 [facility] and [facility] TMD TEACHER ASSISTANT-Cde perineal pain N83.202 Unspecified ovarian cyst, left side Office Visit 04/29/2019 9:00a [facility] Imelda Beth, N83.202 Unspecified [facility] TMD TEACHER ASSISTANT-Cde ovarian cyst, left side R10.2 Pelvic and perineal pain R10.32 Left lower quadrant pain Office Visit 04/19/2019 4:00p [facility] Radha Mullins, R10.2 [facility] N.P. perineal pain N83.202 Unspecified ovarian cyst, left side N93.9 Abnormal uterine and vaginal bleeding, unspecified Assessments Date Code Description Provider 06/24/2019 R10.2 Pelvic and perineal pain Asaf Rashid MD 05/07/2019 R10.32 Left lower quadrant pain Asaf Rashid MD 05/07/2019 R10.2 Pelvic and perineal pain Imelda Beth, [facility] 05/07/2019 N83.202 Unspecified ovarian cyst, left side Asaf Rashid MD 05/07/2019 N83.202 Unspecified ovarian cyst, left side Imelda Beth, [facility] 04/29/2019 N83.202 Unspecified ovarian cyst, left side Imelda Beth, [facility] 04/29/2019 R10.2 Pelvic and perineal pain Imelda Beth, [facility] 04/29/2019 R10.32 Left lower quadrant pain Imelda Beth, [facility] 04/19/2019 R10.2 Pelvic and perineal pain Radha Mullins, N.P. 04/19/2019 N83.202 Unspecified ovarian cyst, left side Radha Mullins, N.P. 04/19/2019 N93.9 Abnormal uterine and vaginal bleeding, Radha Mullins, N.P. unspecified Plan of Treatment No Information Available Functional Status Description No Information Available Mental Status Description No Information Available Referrals Description No Information Available
[2019-08-12] MEDS ORDERED: Morphine 4 MG/ML VIAL (1 ml) 4 MG/ML VIAL IV ONE (18:36)
[2019-08-12] MEDS ORDERED: Ketorolac INJ* 30 MG/ML 1 ML VIAL IV PUSH ONE (18:36)
[2019-08-12] MEDS ORDERED: NS 0.9% 1000 ML** 1,000 ML IV ONE (18:37)
[2019-08-12] MEDS ORDERED: Ondansetron INJ* 2 MG/ML VIAL IV ONE (18:37)
--- NOTE | 2019-08-12 18:42 | ED ---
GI/ HPI - HPI Summary HPI Summary: This is a 44 year old female with a history of chronic pyelonephritis and kidney stones presenting with flank pain for two days. The pain began 5 days ago in the suprapubic area, and moved to the flanks bilaterally two days ago. She states the pain is constant and intermittently sharp. She took Tramadol x2 this morning without relief of pain. She endorses nausea, vomiting, and urinay frequency but denies any urinary urgency or hematuria. - History of Current Complaint Chief Complaint: EDFlankPain Time Seen by Provider: 08/12/19 18:26 Stated Complaint: KIDNEY PAIN PER PT Hx Last Menstrual Period: dec 04 Pain Intensity: 9 - Allergy/Home Medications Allergies/Adverse Reactions: Allergies Allergy/AdvReac Type Severity Reaction Status Date / Time furosemide [From Lasix] Allergy Anaphylatic Verified 08/12/19 16:24 Shock levofloxacin [From Levaquin] Allergy Anaphylatic Verified 08/12/19 16:24 Shock Sulfa (Sulfonamide AdvReac Itching Verified 08/12/19 16:24 Antibiotics) PMH/Surg Hx/FS Hx/Imm Hx Endocrine/Hematology History: Denies: Hx Diabetes, Hx Thyroid Disease Cardiovascular History: Denies: Hx Hypertension, Hx Pacemaker/ICD Respiratory History: Denies: Hx Asthma, Hx Chronic Obstructive Pulmonary Disease (COPD) GI History: Denies: Hx Ulcer History: Reports: Hx Renal Disease Musculoskeletal History: Reports: Hx Back Problems Sensory History: Denies: Hx Eye Prosthesis, Hx Hearing Aid Opthamlomology History: Denies: Hx Eye Prosthesis Neurological History: Denies: Hx Dementia Psychiatric History: Denies: Hx Panic Disorder - Cancer History Cancer Type, Location and Year: skin, fibroids cysts Hx Chemotherapy: No Hx Radiation Therapy: No - Surgical History Surgery Procedure, Year, and Place: tubal ligation;. benign mass from right maxillary sinus, - Immunization History Date of Tetanus Vaccine: unknown Infectious Disease History: No Infectious Disease History: Denies: Hx Clostridium Difficile, Hx Hepatitis, Hx Human Immunodeficiency Virus (HIV), Hx of Known/Suspected MRSA, Hx Shingles, Hx Tuberculosis, Hx Known/ Suspected VRE, Hx Known/Suspected VRSA, History Other Infectious Disease, Traveled Outside the [place] in Last 30 Days - Family History Known Family History: Positive: Unknown - adopted, Non-Contributory - Social History Alcohol Use: None Hx Substance Use: No Substance Use Type: Reports: None Hx Tobacco Use: Yes Smoking Status (MU): Light Every Day Tobacco Smoker Review of Systems Negative: Fever Negative: Chest Pain Negative: Shortness Of Breath Positive: Abdominal Pain, Nausea. Negative: Vomiting Positive: flank pain. Negative: dysuria All Other Systems Reviewed And Are Negative: Yes Physical Exam Triage Information Reviewed: Yes Vital Signs On Initial Exam: Initial Vitals Temp Pulse Resp BP Pulse Ox 98.0 F 105 16 126/85 100 08/12/19 16:22 08/12/19 16:22 08/12/19 16:22 08/12/19 16:22 08/12/19 16:22 Vital Signs Reviewed: Yes Appearance: Positive: Well-Appearing Skin: Positive: Warm, Dry Head/Face: Positive: Normal Head/Face Inspection Eyes: Positive: Normal, Conjunctiva Clear ENT: Positive: Pharynx normal Respiratory/Lung Sounds: Positive: Clear to Auscultation, Breath Sounds Present Cardiovascular: Positive: Normal, RRR Abdomen Description: Positive: Soft, CVA Tenderness (R), CVA Tenderness (L), Other: - tenderness in LLQ Bowel Sounds: Positive: Present Musculoskeletal: Positive: Normal Neurological: Positive: Normal Psychiatric: Positive: Normal Procedures - Sedation Patient Received Moderate/Deep Sedation with Procedure: No Diagnostics - Vital Signs Vital Signs Temp Pulse Resp BP Pulse Ox 08/12/19 16:22 98.0 F 105 16 126/85 100 - Laboratory Result Diagrams: 08/12/19 19:11 08/12/19 19:11 Lab Statement: Any lab studies that have been ordered have been reviewed, and results considered in the medical decision making process. - CT No standard instances CT Interpretation Completed By: Radiologist Summary of CT Findings: IMPRESSION: 1. No visible renal, ureteral or bladder calculi. 2. There is borderline prominence of loops of jejunum in the left upper quadrant, cannot exclude mild focal ileus or some degree of small bowel obstruction. Re-Evaluation - Re-Evaluation First Eval Re-Evaluation Time: 20:13 Change: Improved Comment: discussed results GIGU Course/Dx - Course Course Of Treatment: 44-year-old female presents with flank pain for the past couple days. She admits to nausea and vomiting. has history of stones and pyelo. on exam bilateral flank pain and lower abdominal pain. wbc normal. urine no infection. CT shows no stone, possible ileus. has been having BM. crp normal. discussed may be viral syndrome. gave zofran for nausea. patient understand and agrees with plan. - Diagnoses Differential Diagnoses - Female: Pyelonephritis, Urinary Tract Infection, Ureteral Calculi Provider Diagnoses: Abdominal pain, Flank pain Discharge ED - Sign-Out/Discharge Documenting (check all that apply): Patient Departure - Discharge Plan Condition: Good Disposition: HOME Prescriptions: Ondansetron TAB* [Zofran 4 MG Tab*] 4 mg PO Q6H PRN #20 tab PRN Reason: Nausea Patient Education Materials: Acute Abdominal Pain (ED) Forms: *Work Release Referrals: Zeke Zamarripa MD [Primary Care Provider] - Additional Instructions: Can take Zofran every 6 hours as needed for nausea Drink small amounts of fluid as tolerated When able to eat follow BRAT diet: Bananas, rice, applesauce, toast Take ibuprofen or Tylenol for pain as needed every 6 hours Follow up with primary within 5 days Return to ED if develop any new or worsening symptoms - Billing Disposition and Condition Condition: GOOD Disposition: Home
[2019-08-12 19:21] LABS: ABS Basophils 0.1 10^3/ul (0-0.2); ABS Eosinophils 0.6 10^3/ul (0-0.6); ABS Lymphocytes 2.8 10^3/ul (1.0-4.8); ABS Monocytes 0.4 10^3/ul (0-0.8); ABS Neutrophils 4.9 10^3/ul (1.5-7.7); Eosinophil % 6.3 %; Hematocrit 41 % (35-47); Hemoglobin 14.1 g/dL (12.0-16.0); Lymphocyte % 31.6 %; Mean Corpuscular HGB Conc 35 g/dL (31-36); Mean Corpuscular Hemoglobin 32 pg (27-31); Mean Corpuscular Volume 92 fL (80-97); Mean Platelet Volume 7.3 fL (7.4-10.4); Platelet Count 300 10^3/uL (150-450); Red Cell Distribution Width 14 % (10-15); White Blood Count 8.8 10^3/uL (3.5-10.8)
[2019-08-12 19:22] LABS: Urine Appearance Cloudy; Urine Bilirubin Negative (Negative); Urine Blood Negative (Negative); Urine Color Yellow; Urine Glucose Negative (Negative); Urine Ketones Negative (Negative); Urine Nitrite Negative (Negative); Urine Protein Negative (Negative); Urine Specific Gravity 1.004 (1.010-1.030); Urine Urobilinogen Negative (Negative)
[2019-08-12 19:39] LABS: ALT 10 U/L (7-52); AST 13 U/L (13-39); Albumin 4.4 g/dL (3.2-5.2); Albumin/Globulin Ratio 1.8 (1-3); Alkaline Phosphatase 47 U/L (34-104); Anion Gap 5 mmol/L (2-11); BUN/Creatinine Ratio 12.5 (8-20); Blood Urea Nitrogen 8 mg/dL (6-24); C Reactive Protein < 1.00 mg/L (<8.01); CO2 Carbon Dioxide 25 mmol/L (22-32); Calcium 9.1 mg/dL (8.6-10.3); Chloride 109 mmol/L (101-111); EGFR African American 123.1 (>60); EGFR Non-African American 101.8 (>60); Globulin 2.4 g/dL (2-4); Glucose 82 mg/dL (70-100); Potassium 3.9 mmol/L (3.5-5.0); Sodium 139 mmol/L (135-145); Total Protein 6.8 g/dL (6.4-8.9)
[2019-08-12 19:43] LABS: HCG Pregnancy < 0.60 mIU/mL
[2019-08-12 20:21] VITALS: BP 132/84
== END 2019-08-12 20:21 | disposition home or self-care (01) ==
LOC: ED 16:16
DX: R10.84 Generalized abdominal pain (principal); N12 Tubulo-interstitial nephritis, not specified as acute or chronic; R11.10 Vomiting, unspecified; Z87.442 Personal history of urinary calculi; F17.210 Nicotine dependence, cigarettes, uncomplicated
CPT/HCPCS: 36415; 74176; 80053; 81003; 83690; 84702; 85025; 86140; 96361; 96374; 96375; 99282; J1885; J2270; J2405

== ENCOUNTER 2019-11-18 08:38 | Emergency (ER) | payer SELFPAY ==
[2019-11-18] MEDS ORDERED: Ondansetron INJ* 2 MG/ML VIAL IV ONE (09:18)
[2019-11-18] MEDS ORDERED: Morphine 4 MG/ML VIAL (1 ml) 4 MG/ML VIAL IV ONE ×2 (09:18→10:28)
[2019-11-18] MEDS ORDERED: NS 0.9% 1000 ML** 1,000 ML IV ONE (09:18)
--- NOTE | 2019-11-18 09:21 | ED ---
Abdominal Pain/Female - HPI Summary HPI Summary: The patient is a 44 y/o female presenting to [facility] accompanied by with a chief complaint of pelvic abdominal pain onset yesterday. She reports that the pain is constant rated 8/10 in severity, but then it worsens as it tightens. There is more pain on the right than the left. She also has been experiencing nausea, vomiting, and diarrhea. She denies any fevers, chills, erythema of eyes, sore throat, chest pain, shortness of breath, cough, dysuria, hematuria, changes in urinary frequency, flank pain, myalgia, edema, rash, or dizziness. She notes a history of endometriosis which usually doesnt present with diarrhea during flare-ups, but she has had vomiting in the past. She is not being treated for the endometriosis at this time. She has been seeing OB/ VBA DEVELOPER and her PCP since April 2019. Current COMMERCIAL CONSTRUCTION SUPERINTENDENT is Dr. Taylor. She has not had any surgeries related to the diagnosis. She has not had an appendectomy. PMHx: melanoma. FHx: endometriosis in biological sister, unknown other as patient is adopted. Current smoker, no EtOH, no substance use. Medications reviewed. Allergies noted. - History of Current Complaint Chief Complaint: EDAbdPain Stated Complaint: ABDOMINAL PAIN PER PT Time Seen by Provider: 11/18/19 08:52 Hx Obtained From: Patient Hx Last Menstrual Period: dec 04 Onset/Duration: Sudden Onset, Still Present Timing: Constant - with worsening Severity Initially: Severe Severity Currently: Severe Pain Intensity: 8 Pain Scale Used: 0-10 Numeric Location: Other - pelvic Radiates: No Character: Sharp, Other: - tight Aggravating Factor(s): Nothing Alleviating Factor(s): Nothing Associated Signs and Symptoms: Positive: Nausea, Vomiting, Diarrhea, Other: - Negative: flank pain, erythema of eyes, sore throat, shortness of breath, chest pain, myalgia, edema, rash. Negative: Fever, Cough, Chest Pain, Dizzy, Urinary Symptoms Allergies/Adverse Reactions: Allergies Allergy/AdvReac Type Severity Reaction Status Date / Time furosemide [From Lasix] Allergy Anaphylatic Verified 11/18/19 08:49 Shock levofloxacin [From Levaquin] Allergy Anaphylatic Verified 11/18/19 08:49 Shock Sulfa (Sulfonamide AdvReac Itching Verified 11/18/19 08:49 Antibiotics) PMH/Surg Hx/FS Hx/Imm Hx Endocrine/Hematology History: Denies: Hx Diabetes, Hx Thyroid Disease Cardiovascular History: Denies: Hx Hypertension, Hx Pacemaker/ICD Respiratory History: Denies: Hx Asthma, Hx Chronic Obstructive Pulmonary Disease (COPD) GI History: Denies: Hx Ulcer History: Reports: Hx Renal Disease, Other Problems/Disorders - endometriosis Musculoskeletal History: Reports: Hx Back Problems Sensory History: Denies: Hx Eye Prosthesis, Hx Hearing Aid Opthamlomology History: Denies: Hx Eye Prosthesis Neurological History: Denies: Hx Dementia Psychiatric History: Denies: Hx Panic Disorder - Cancer History Cancer Type, Location and Year: skin, fibroids cysts Hx Chemotherapy: No Hx Radiation Therapy: No - Surgical History Surgical History: Yes Surgery Procedure, Year, and Place: tubal ligation;. benign mass from right maxillary sinus, - Immunization History Date of Tetanus Vaccine: unknown Infectious Disease History: No Infectious Disease History: Denies: Hx Clostridium Difficile, Hx Hepatitis, Hx Human Immunodeficiency Virus (HIV), Hx of Known/Suspected MRSA, Hx Shingles, Hx Tuberculosis, Hx Known/ Suspected VRE, Hx Known/Suspected VRSA, History Other Infectious Disease, Traveled Outside the [place] in Last 30 Days - Family History Known Family History: Positive: Unknown - adopted, Other - endometriosis - Social History Alcohol Use: None Hx Substance Use: No Substance Use Type: Reports: None Hx Tobacco Use: Yes Smoking Status (MU): Light Every Day Tobacco Smoker Review of Systems Negative: Fever, Chills Negative: Erythema Negative: Sore Throat Negative: Chest Pain Negative: Shortness Of Breath, Cough Positive: Abdominal Pain - lower, pelvic, Vomiting, Diarrhea, Nausea Negative: dysuria, frequency, flank pain, hematuria Negative: Myalgia, Edema Negative: Rash Neurological: Other - Negative: dizziness All Other Systems Reviewed And Are Negative: Yes Physical Exam - Summary Physical Exam Summary: Constitutional: Well-developed, Well-nourished, Alert. (+) Distressed, crying in pain Skin: Warm, Dry HENT: Normocephalic; Atraumatic Eyes: Conjunctiva normal Neck: Musculoskeletal ROM normal neck. (-) JVD, (-) Stridor, (-) Tracheal deviation Cardio: Rhythm regular, rate normal, Heart sounds normal; Intact distal pulses; The pedal pulses are 2+ and symmetric. Radial pulses are 2+ and symmetric. (-) Murmur Pulmonary/Chest wall: Effort normal. (-) Respiratory distress, (-) Wheezes, (-) Rales Abd: Soft, (+) RLQ tenderness, (-) Distension, (-) Guarding, (-) Rebound Musculoskeletal: Left CVA tenderness, (-) Edema Lymph: (-) Cervical adenopathy Neuro: Alert, Oriented x3 Psych: Mood and affect Normal Triage Information Reviewed: Yes Vital Signs On Initial Exam: Initial Vitals Temp Pulse Resp BP Pulse Ox 97.5 F 85 20 135/81 99 11/18/19 08:43 11/18/19 08:43 11/18/19 08:43 11/18/19 08:43 11/18/19 08:43 Vital Signs Reviewed: Yes Procedures - Sedation Patient Received Moderate/Deep Sedation with Procedure: No Diagnostics - Vital Signs Vital Signs Temp Pulse Resp BP Pulse Ox 11/18/19 09:03 97.8 F 11/18/19 08:43 97.5 F 85 20 135/81 99 - Laboratory Result Diagrams: 11/18/19 09:08 11/18/19 09:08 Lab Statement: Any lab studies that have been ordered have been reviewed, and results considered in the medical decision making process. - CT Abd/Pel CT CT Interpretation Completed By: Radiologist Summary of CT Findings: Impression: 1. No evidence for acute finding. 2. Mild hepatosplenomegaly, unchanged. 3. Enlarged left ovarian vein and prominent left adnexal vascular structures suggesting the possibility of pelvic congestion syndrome. 4. Slightly enlarged retroverted uterus. ED physician has reviewed this report. - Ultrasound Transvaginal US Ultrasound Interpretation Completed By: Radiologist Summary of Ultrasound Findings: Impression: 1. Small amount of free intraperitoneal fluid. 2. Small subserosal leiomyoma, unchanged. 3. Prominent vascular structures in the left adnexal region suggesting the possibility of pelvic congestion syndrome. 4. Retroverted uterus. ED physician has reviewed this report. Re-Evaluation - Re-Evaluation First Eval Re-Evaluation Time: 15:45 Comment: Patient still in pain, will administer Toradol Second Eval Re-Evaluation Time: 16:30 Comment: We discussed all results and plan for discharge. Abdominal Pain Fem Course/Dx - Course Course Of Treatment: Patient is a 44 y/o female who has history of known endometriosis without medication or surgical treatment yet, with concern for lower abdominal pain with nausea, vomiting, and diarrhea since yesterday, which has been worse than her usual endometriosis flare-up. She denies any urinary symptoms or flank pain. Physical exam reveals patient to be crying in pain with left CVA tenderness and RLQ tenderness. I accessed patient's [facility] records. In the ED course, the patient was administered fluids, Zofran for nausea, and Morphine and Percocet for pain. Blood work obtained to reveal chloride of 112, carbon dioxide of 21, glucose of 113, AST of 10, and ALT of 6. First lactice acid of 1.2, repeat is 0.5. UA reveals 1+ ketones, 1+ blood, 3+ RBCs, and presence of squamous epithelial cells. Transvaginal US impression reveals small amount of free intraperitoneal fluid, possibility of pelvic congestion syndrome , retroverted uterus. Abd/Pel CT negative for acute finding but reveals likely pelvic congestion syndrome. Patient continues to be in pain so we administered Toradol. After speaking with interventional radiology and the patients COMMERCIAL CONSTRUCTION SUPERINTENDENT, I discovered neither are available this week. Thus, I spoke with Dr. Soler from COMMERCIAL CONSTRUCTION SUPERINTENDENT who recommends ER follow up for pelvic therapy. Luisana from [employer] has spoken with the patient concerning insurance issues. Patient understands and agrees with plan. D/c with rx for Percocet. - Diagnoses Provider Diagnoses: Pelvic pain, Pelvic congestion syndrome - Provider Notifications Instructed by Provider To: Other - [1340] I spoke with interventional radiology , and Dr. Ramachandran will not be available this week. [1430] Dr. Taylor, the patient s COMMERCIAL CONSTRUCTION SUPERINTENDENT, is not available this week. Dr. Keen will call back following a procedure. [1550] Dr. Marrufo recommends pelvic therapy with ER follow up in the COMMERCIAL CONSTRUCTION SUPERINTENDENT office thus week. She notes the patients insurance has been canceled. [1600] Luisana from [employer] will speak with the patient concerning insurance appointment. Discharge ED - Sign-Out/Discharge Documenting (check all that apply): Patient Departure - Patient will be discharged home. - Discharge Plan Condition: Stable Disposition: HOME Prescriptions: oxyCODONE/Acetamin 5/325 MG* [Percocet 5/325 TAB*] 1 - 2 tab PO Q6H PRN #20 tab MDD 8 PRN Reason: Pain - Severe Patient Education Materials: Pelvic Pain in Women (ED) Referrals: Zeke Zamarripa MD [Primary Care Provider] - 3 Days Alma Soler MD [Medical Doctor] - 3 Days Chris Ramachandran MD [Medical Doctor] - 1 Week Additional Instructions: Please take medication as prescribed. Follow up with Dr. Soler from COMMERCIAL CONSTRUCTION SUPERINTENDENT in the office this week for an emergency department follow up. FOllow up with Dr. Ramachandran from radiology in a week. Follow up with your primary care provider as needed. Return to the emergency department for any new or worsening symptoms. - Attestation Statements Document Initiated by Scribe: Yes Documenting Scribe: Destiny Clemons Provider For Whom [place] is Documenting (Include Credential): Dr. Hector Villarreal MD Scribe Attestation: Destiny Estrada, scribed for Dr. Hector Villarreal MD on 11/18/19 at 1645. Status of Scribe Document: Ready
[2019-11-18 09:22] LABS: ABS Basophils 0.1 10^3/ul (0-0.2); ABS Eosinophils 0.3 10^3/ul (0-0.6); ABS Monocytes 0.5 10^3/ul (0-0.8); ABS Neutrophils 7.6 10^3/ul (1.5-7.7); Hematocrit 40 % (35-47); Hemoglobin 14.1 g/dL (12.0-16.0); Lymphocyte % 19.4 %; Mean Corpuscular HGB Conc 35 g/dL (31-36); Mean Corpuscular Hemoglobin 33 pg (27-31); Mean Corpuscular Volume 93 fL (80-97); Mean Platelet Volume 7.8 fL (7.4-10.4); Platelet Count 296 10^3/uL (150-450); Red Blood Count 4.35 10^6 /uL (3.70-4.87); Red Cell Distribution Width 14 % (10-15); White Blood Count 10.5 10^3/uL (3.5-10.8)
--- OUTSIDE RECORDS SUMMARY | 2019-11-18 09:40 | XMS REPORT | Continuity of Care Document ---
:1975 External Reference #:[id number] Author Name Zeke Zamarripa MD (transmitted by agent of provider Elodia Hanson) Address [address] [place] [id number] Care Team Providers Name Role Phone Karol Dodd M.D. - Sports Care Team Information Advanced Practice Registered Nurse [phone] Medicine Juice Swann MD - Neurological Care Team Information Advanced Practice Registered Nurse [phone] Surgery Sidney Dos Santos MD - Interventional Care Team Information Advanced Practice Registered Nurse [facility] - Pain Care Team Information Advanced Practice Registered Nurse [phone] Kingston Mcmahan MD - Internal Care Team Information Advanced Practice Registered Nurse [phone] Medicine Zeke Zamarripa MD - Hospitalist Care Team Information Advanced Practice Registered Nurse [phone] Problems Active Problems Provider Date Backache Bill [...] (10 or fewer cigarettes/day) Smoking Status Reviewed: 10/11/19 Light tobacco smoker (10 or fewer cigarettes/day) ETOH Use 11/27/2016 Never used alcohol Tobacco Use Start: Unknown Light tobacco smoker (10 or fewer cigarettes/day) Recreational Drug Use Never Used Drugs Exercise Type/Frequency Does not exercise Allergies, Adverse Reactions, Alerts Active Allergies Reaction Severity Comments Date Lasix 08/17/2014 Sulfa Antibiotics 08/17/2014 Levaquin 08/17/2014 Medications Active Medications SIG Qnty Indications Ordering Provider Date Miralax 17 gm by mouth 510gm R10.32 Zeke Zamarripa MD 06/29/2019 3350NF Powder daily Senna-Lax take 1 tab daily 30tabs R10.32 Zeke Zamarripa MD 06/29/2019 8.6mg Tablets Ibuprofen as needed Unknown 200mg Capsules Tylenol 2 tablets every 4 Unknown 325mg Capsules hours as needed for pain Naproxen 1 by mouth twice Unknown 250mg Tablets a day as needed History Medications Linzess 1 by mouth every 32caps Ana Prather, 08/18/2019 - 290mcg Capsules day/samples CORE MAKER 10/11/2019 Hyoscyamine Sulfate take one every 4 120tabs R10.32 Ca 08/16/2019 - hours as needed DO Mohamud 10/11/2019 0.125mg Tablets for pain Tramadol HCL one tablet by 90tabs R10.32 Zeke Zamarripa MD 06/29/2019 - 50mg mouth q8 as needed 08/16/2019 Tablets for moderate pain Tramadol HCL one tablet po q6 30tabs R10.32 Asaf Rashid, 05/07/2019 - 50mg prn strong pain 06/29/2019 Tablets Norethindrone Acetate 1 po qd 30tabs N83.202 Imelda Beth, 04/29/2019 - FIRE PATROL-Cde 05/06/2019 5mg Tablets Tramadol HCL 1-2 tablet every 6 14tabs Imelda Beth, 04/22/2019 - 50mg hours as needed FIRE PATROL-Cde 06/29/2019 Tablets for pain Tramadol HCL 1 tablet every 6 30tabs Asaf Rashid 04/19/2019 - 50mg hours as needed 06/29/2019 Tablets for pain Medications Administered in Office Medication SIG Qnty Indications Ordering Provider Date Depomedrol 40MG Segun Bustamante MD 02/27/2017 Injection Immunizations CPT Code Status Date Vaccine Lot # [id number] Given 11/03/2016 Influ Virus Vaccine, Quadrivalent, Split Virus, Im Fluzone not PF Vital Signs Date Vital Result Comment 10/11/2019 8:30am Height 68.5 inches 5'8.50" Weight 162.00 lb Heart Rate 98 /min BP Systolic Sitting 120 mmHg BP Diastolic Sitting 74 mmHg Body Temperature 99.0 F O2 % BldC Oximetry 98 % BMI (Body Mass Index) 24.3 kg/m2 08/18/2019 1:21pm Height 68.5 inches 5'8.50" Weight 157.00 lb Heart Rate 107 /min BP Systolic 110 mmHg BP Diastolic 69 mmHg O2 % BldC Oximetry 100 % BMI (Body Mass Index) 23.5 kg/m2 Results Test Acquired Date Facility Test Result H/L Range Note Laboratory test 08/18/2019 [facility] Amylase <pending> finding [address] [place] [address] [phone] Lipase <pending> C Reactive Protein <pending> Erythrocyte Sed Rate <pending> Comp Metabolic 08/12/2019 [facility] Sodium 139 mmol/L Normal 135-145 Panel [address] [place] [address] [phone] Potassium 3.9 mmol/L Normal 3.5-5.0 Chloride 109 mmol/L Normal 101-111 Co2 Carbon Dioxide 25 mmol/L Normal 22-32 Anion Gap 5 mmol/L Normal 2-11 Glucose 82 mg/dL Normal 70-100 Blood Urea Nitrogen 8 mg/dL Normal 6-24 Creatinine 0.64 mg/dL Normal 0.51-0.95 BUN/Creatinine Ratio 12.5 Normal 8-20 Calcium 9.1 mg/dL Normal 8.6-10.3 Total Protein 6.8 g/dL Normal 6.4-8.9 Albumin 4.4 g/dL Normal 3.2-5.2 Globulin 2.4 g/dL Normal 2-4 Albumin/Globulin Ratio 1.8 Normal 1-3 Total Bilirubin 0.80 mg/dL Normal 0.2-1.0 Alkaline Phosphatase 47 U/L Normal 34-104 Alt 10 U/L Normal 7-52 Ast 13 U/L Normal 13-39 Egfr Non- 101.8 >60 Egfr 123.1 >60 1 Laboratory test 08/12/2019 [facility] Lipase 25 U/L Normal 11.0-82.0 finding [address] [place] [address] [phone] C Reactive Protein < 1.00 mg/L Normal <8.01 HCG < 0.60 mIU/mL 2 CBC Auto 08/12/2019 [facility] White Blood 8.8 10^3/uL Normal 3.5-10.[address] [place] [address] [phone] Red Blood Count 4.40 10^6/uL Normal 3.70-4.87 Hemoglobin 14.1 g/dL Normal 12.0-16.0 Hematocrit 41 % Normal 35-47 Mean Corpuscular Volume 92 fL Normal 80-97 Mean Corpuscular Hemoglobin 32 pg High 27-31 Mean Corpuscular HGB Conc 35 g/dL Normal 31-36 Red Cell Distribution Width 14 % Normal 10-15 Platelet Count 300 10^3/uL Normal 150-450 Mean Platelet Volume 7.3 fL Low 7.4-10.4 Abs Neutrophils 4.9 10^3/uL Normal 1.5-7.7 Abs Lymphocytes 2.8 10^3/uL Normal 1.0-4.8 Abs Monocytes 0.4 10^3/uL Normal 0-0.8 Abs Eosinophils 0.6 10^3/uL Normal 0-0.6 Abs Basophils 0.1 10^3/uL Normal 0-0.2 Abs Nucleated RBC 0.0 10^3/uL Granulocyte % 56.1 % Lymphocyte % 31.6 % Monocyte % 4.7 % Eosinophil % 6.3 % Basophil % 1.3 % Nucleated Red Blood Cells % 0.0 Urinalysis Profile 08/12/2019 [facility] Urine Color Yellow [address] [place] [address] [phone] Urine Appearance Cloudy Urine Specific [place] 1.004 Low 1.010-1.030 Urine pH 7.0 Normal 5-9 Urine Urobilinogen Negative Negative Urine Ketones Negative Negative Urine Protein Negative Negative Urine Leukocytes Negative Negative Urine Blood Negative Negative Urine Nitrite Negative Negative Urine Bilirubin Negative Negative Urine Glucose Negative Negative Laboratory 07/15/2019 [facility] TSH (Thyroid 1.10 Normal 0.34 -5.[address] [facility] Stim Horm) mcIU/[place] [address] [phone] Free T4 (Free Thyroxine) 1.02 ng/dL Normal 0.61-1.12 Laboratory test 06/23/2019 [facility] Poc , Negative Negative [address] [place] [address] [phone] Poc Urinalysis 06/23/2019 [facility] Poc Glucose, Negative Negative [address] [place] [address] [phone] Poc Bilirubin, Urine Negative Negative Poc Ketone, Urine Negative Negative Poc Specific [place], Urine 1.015 Normal 1.010-1.030 Poc Blood, Urine Negative Negative Poc pH, Urine 8.0 Normal 5-9 Poc Protein, Urine Negative Negative Poc Urobilinogen, Urine 0.2 Negative Poc Nitrite, Urine Negative Negative Poc Leukocytes, Urine Negative Negative Poc Color, Urine Yellow Poc Clarity, Urine Clear 4 CBC Auto 05/12/2019 [facility] White Blood 7.9 10^3/uL Normal 3.5-10.[address] [place] [address] [phone] Red Blood Count 4.12 10^6/uL Normal 3.70-4.87 [...] Blood Cells % 0.1 Laboratory test 05/12/2019 [facility] Lactic Acid 0.9 mmol/L Normal 0.5-2.0 [address] [place] [address] [phone] Comp Metabolic 05/12/2019 [facility] Sodium 138 mmol/L Normal 135-145 Panel [address] [place] [address] [phone] Potassium 4.0 mmol/L Normal 3.5-5.0 Chloride 106 [...] Egfr Non- 90.3 >60 Egfr 109.2 >60 6 Laboratory test 05/12/2019 [facility] Lipase 26 U/L Normal 11.0-82.0 finding [address] [place] [address] [phone] C Reactive Protein < 1.00 mg/L Normal <8.01 HCG < 0.60 mIU/mL 7 Urinalysis Profile 05/12/2019 [facility] Urine Color Straw [address] [place] [address] [phone] Urine Appearance Clear Urine Specific [place] 1.004 Low 1.010-1.030 Urine pH 8.0 Normal 5-9 Urine Urobilinogen Negative Negative Urine Ketones Negative Negative Urine Protein Negative Negative Urine Leukocytes Negative Negative Urine Blood Negative Negative Urine Nitrite Negative Negative Urine Bilirubin Negative Negative Urine Glucose Negative Negative GC/Chlamydia 04/19/2019 [facility] Chlamydia Negative Negative Amplified Rna [address] [facility] [place] [address] [phone] Neisseria gonorrhoeae (GC) Rna Negative Negative 1 Because ethnic data is not always [...] 5 Kidney failure <15 (or dialysis) 2 <5.0 Negative 5.0 - 25.0 Indeterminate (Repeat testing recommended after 72 hours) >25.0 Positive Perimenopausal women can display HCG levels of up to 20 mIU/mL 3 Cane Weigher Helper: [id number] Test Disclaimer: Positive bacteria, red blood cells, white blood cells, early , low specific gravity, and other factors may cause false positive or negative results. It is recommended to retest unexpected and borderline results with a serum test when applicable. If is still suspected, please repeat test after 48 to 72 hours. 4 Cane Weigher Helper: [id number] 5 [facility] Severe Sepsis and Septic Shock Management Bundle Measure requires all lactic acids initially measuring >2.0 mmol/L be repeated. 6 Because ethnic data is not always readily [...] 15-29 5 Kidney failure <15 (or dialysis) 7 <5.0 Negative 5.0 - 25.0 Indeterminate (Repeat testing recommended after 72 hours) >25.0 Positive Perimenopausal women can display HCG levels of up to 20 mIU/mL Procedures Date Code Description Status 02/20/2016 64018780 Mammogram Completed Medical Devices Description No Information Available Encounters Type Date Location Provider Dx Diagnosis Office Visit 08/18/2019 [facility] Gastroenterology Ana Prather NP R10.32 Left lower 1:00p quadrant pain K59.00 Constipation, unspecified R10.2 Pelvic and perineal pain Office Visit 07/27/2019 8:00a [facility] Internal Zeke Zamarripa MD D25.9 [facility] - Suite uterus, unspecified R R10.32 Left lower quadrant pain K59.00 Constipation, unspecified [facility] MD perineal pain R10.31 Right lower quadrant pain R10.32 Left lower quadrant pain Office Visit [facility] R10.32 Left lower [facility] MD quadrant pain N83.202 Unspecified ovarian cyst, left side Office Visit 05/07/2019 9:00a [facility] Imelda Beth, R10.2 [facility] FIRE PATROL-Cde perineal pain N83.202 Unspecified ovarian cyst, left side Office Visit 04/29/2019 9:00a [facility] Imelda Beth, N83.202 Unspecified [facility] FIRE PATROL-Cde ovarian cyst, left side R10.2 Pelvic and perineal pain R10.32 Left lower quadrant pain Office Visit 04/19/2019 4:00p [facility] Radha Mullins, R10.2 [facility] N.P. perineal pain N83.202 Unspecified ovarian cyst, left side N93.9 Abnormal uterine and vaginal bleeding, unspecified Assessments Date Code Description Provider 10/11/2019 N80.9 Endometriosis, unspecified Zeke Zamarripa MD 10/11/2019 R10.32 Left lower quadrant pain Zeke Zamarripa MD 10/11/2019 K59.00 Constipation, unspecified Zeke Zamarripa MD 10/11/2019 N91.2 Amenorrhea, unspecified Zeke Zamarripa MD 08/18/2019 R10.32 Left lower quadrant pain Ana Prather, BRIEN 08/18/2019 K59.00 Constipation, unspecified Ana Prather, CORE MAKER 08/18/2019 R10.2 Pelvic and perineal pain Ana Prather, BRIEN 08/16/2019 R10.32 Left lower quadrant pain Ca Mallory DO 07/27/2019 D25.9 Leiomyoma of uterus, unspecified Zeke Zamarripa MD 07/27/2019 R10.32 Left lower quadrant pain Zeke Zamarripa MD 07/27/2019 K59.00 Constipation, unspecified Zeke Zamarripa MD 06/29/2019 R10.32 Left lower quadrant pain Zeke Zamarripa MD 06/29/2019 N83.202 Unspecified ovarian cyst, left side Zeke Zamarripa MD 06/29/2019 K59.00 Constipation, adelaified Zeke Zamarripa MD 06/29/2019 R63.4 Abnormal weight loss Zeke Zamarripa MD 06/24/2019 R10.2 Pelvic and perineal pain Asaf Rashid MD 06/24/2019 R10.31 Right lower quadrant pain Asaf Rashid MD 06/24/2019 R10.32 Left lower quadrant pain Asaf Rashid MD 05/07/2019 R10.32 Left lower quadrant pain Asaf Rashid MD 05/07/2019 R10.2 Pelvic and perineal pain Imelda Beth [facility] 05/07/2019 N83.202 Unspecified ovarian cyst, left side Asaf Rashid MD 05/07/2019 N83.202 Unspecified ovarian cyst, left side Imelda Beth, [facility]- Cde 04/29/2019 N83.202 Unspecified ovarian cyst, left side Imelda Beth, [facility]- Cde 04/29/2019 R10.2 Pelvic and perineal pain Imelda Beth, FIRE PATROL-Cde 04/29/2019 R10.32 Left lower quadrant pain Imelda Beth, [facility] 04/19/2019 R10.2 Pelvic and perineal pain Radha Mullins, N.P. 04/19/2019 N83.202 Unspecified ovarian cyst, left side Radha Mullins, N.P. 04/19/2019 N93.9 Abnormal uterine and vaginal bleeding, Radha Mullins NJerryP. unspecified Plan of Treatment Future Appointment(s):01/10/2020 9:40 am - Zeke Zamarripa MD at [facility] Internal Medicine - [address]/12/2018 - Zeke Zamarripa MDN80.9 Endometriosis, unspecifiedFollow up:3 vilisG89.32 Left lower quadrant painK59.00 Constipation, [id number] Amenorrhea, unspecifiedComments:Please get lab drawn. Functional Status Description No Information Available Mental Status Description No Information Available Referrals Refer to Reason for Referral Status Appt Date Ana Prather NP Sent 08/18/[address] [place] [phone] Deb Woody MD LLQ pain that is much worse with menstrual Sent 2018 cycle, fibroid [address] [place] [address] [phone]
[2019-11-18 09:43] LABS: ALT 6 U/L (7-52); AST 10 U/L (13-39); Albumin 4.3 g/dL (3.2-5.2); Alkaline Phosphatase 44 U/L (34-104); BUN/Creatinine Ratio 24.6 (8-20); Blood Urea Nitrogen 17 mg/dL (6-24); C Reactive Protein < 1.00 mg/L (<8.01); CO2 Carbon Dioxide 21 mmol/L (22-32); Calcium 9.2 mg/dL (8.6-10.3); EGFR African American 112.9 (>60); EGFR Non-African American 93.3 (>60); Globulin 2.1 g/dL (2-4); Glucose 113 mg/dL (70-100); Potassium 3.7 mmol/L (3.5-5.0); Sodium 141 mmol/L (135-145); Total Protein 6.4 g/dL (6.4-8.9)
[2019-11-18 09:48] LABS: HCG Pregnancy < 0.60 mIU/mL
[2019-11-18 10:02] LABS: Anion Gap 8 mmol/L (2-11); Chloride 112 mmol/L (101-111)
[2019-11-18 11:40] LABS: Urine Appearance Clear; Urine Bilirubin Negative (Negative); Urine Blood 1+ (Negative); Urine Color Yellow; Urine Glucose Negative (Negative); Urine Ketones 1+ (Negative); Urine Nitrite Negative (Negative); Urine Protein Negative (Negative); Urine Urobilinogen Negative (Negative)
[2019-11-18 11:50] LABS: Urine Bacteria Absent (Absent); Urine Red Blood Cell 3+(>10/hpf) (Absent); Urine Squamous Epithelial Cell Present (Absent); Urine White Blood Cell Trace(0-5/hpf) (Absent)
[2019-11-18] MEDS ORDERED: Iohexol 300* (CONTRAST) 10 ML SDV IV ONE (12:38)
[2019-11-18] MEDS ORDERED: oxyCODONE/Acetamin 5/325 MG* TAB PO ONE (13:47)
[2019-11-18] MEDS ORDERED: Ketorolac INJ* 30 MG/ML 1 ML VIAL IV PUSH ONE (15:16)
[2019-11-18 16:50] VITALS: BP 121/40
== END 2019-11-18 16:49 | disposition home or self-care (01) ==
LOC: ED 08:38
DX: N94.89 Other specified conditions associated with female genital organs and menstrual cycle (principal); R10.2 Pelvic and perineal pain; R11.2 Nausea with vomiting, unspecified; R19.7 Diarrhea, unspecified; F17.210 Nicotine dependence, cigarettes, uncomplicated
CPT/HCPCS: 36415; 74177; 76830; 80053; 81003; 81015; 83605; 83690; 84702; 85025; 86140; 87086; 96374; 96375; 96376; 99284; A9270-GY; J1885; J2270; J2405; Q9967

== ENCOUNTER 2023-05-27 10:31 | Observation (INO) ==
[2023-05-27] MEDS ORDERED: cefTRIAXone 1 gm/50 mL D5W 1 GM/50 ML BAG IV ONE (11:59)
[2023-05-27] MEDS ORDERED: Piperacillin/Tazobac 3.375 BAG 3.375 GM/100 ML BAG IV ONE (12:51)
[2023-05-27] MEDS ORDERED: Tetan/Diph/Pertus SYR(Tdap) 0.5 ML SYR(BOOSTRIX) use SYR contains LATEX IM ONE (12:59)
[2023-05-27 13:32] LABS: ABS Basophils 0.1 10^3/uL (0.0-0.1); ABS Eosinophils 0.6 10^3/uL (0.0-0.5); ABS Lymphocytes 2.9 10^3/uL (1.0-4.8); ABS Monocytes 0.5 10^3/uL (0.0-0.9); ABS Neutrophils 7.8 10^3/uL (1.5-7.6); ABS Nucleated RBC 0.02 10^3/ul; Eosinophil % 5.2 %; Hematocrit 42.5 % (35-45); Hemoglobin 15.1 g/dL (11.5-14.3); Lymphocyte % 24.4 %; Mean Corpuscular Hemoglobin 32.3 pg (27-33); Mean Corpuscular Hgb Conc 35.4 g/dL (31-36); Mean Corpuscular Volume 91.2 fL (80-97); Mean Platelet Volume 7.1 fL (7.5-11.2); Nucleated Red Blood Cells % 0.2 /100 WBC (0.0-0.4); Platelet Count 285 10^3/uL (150-450); Red Blood Count 4.66 10^6/uL (3.63-4.92); Red Cell Distribution Width 13.7 % (12-17); White Blood Count 11.9 10^3/uL (3.8-11.8)
[2023-05-27 13:50] LABS: C Reactive Protein 1.47 mg/L (<8.01); Calcium 9.3 mg/dL (8.6-10.3); Creatinine, Serum 0.65 mg/dL (0.51-0.95); eGFR CKD-EPI 109.9 (>60)
[2023-05-27] MEDS ORDERED: Zosyn per Pharmacy NOTE FOLLOW UP SCH (14:00)
[2023-05-27] MEDS ORDERED: Ondansetron ODT 4 mg TAB 4 MG TAB PO PRN (14:06)
[2023-05-27] MEDS ORDERED: Lactulose 30 ml UDC PO PRN (14:06)
[2023-05-27] MEDS ORDERED: Ondansetron 4 mg VIAL 2 MG/ML 2 ml VIAL IV PRN (14:06)
[2023-05-27] MEDS ORDERED: Magnesium Hydroxide LIQ 30 ML UDC PO PRN (14:06)
[2023-05-27] MEDS ORDERED: Gadoteridol (CONTRAST) 279.3 MG/ML 10 ML IV ONE (15:40)
[2023-05-27] MEDS ORDERED: Amoxicillin/Clavul 875/125 TAB (Augmentin 875 tab) PO ONE (17:30)
[2023-05-27 17:39] LABS: Activated Partial Thrombo Time 35.9 seconds (26.0-38.0); INR 1.1 (0.88-1.18)
[2023-05-27] MEDS ORDERED: Piperacillin/Tazobac 3.375 BAG 3.375 GM/100 ML BAG IV SCH (18:00)
[2023-05-27 18:21] VITALS: BP 0/0
[2023-05-27] MEDS ORDERED: Heparin 5000 UNITS/ML 1 mL VIAL SUBCUT SCH (21:00)
[2023-05-28] MEDS ORDERED: Vitamin THERAPEUTIC TAB PO SCH (09:00)
== END 2023-05-27 18:21 | disposition left against medical advice (07) ==
LOC: ED 10:31 → EDHOLD 10:31
PROVIDERS: ADMIT Orthopaedic Surgery; ATTEND Orthopaedic Surgery

== ENCOUNTER 2023-05-28 12:36 | Observation (INO) ==
[2023-05-28] MEDS ORDERED: Piperacillin/Tazobac 3.375 BAG 3.375 GM/100 ML BAG IV ONE (13:08)
[2023-05-28] MEDS ORDERED: Lactated Ringers 1000 ml BAG 1,000 ML IV ONE (14:09)
[2023-05-28 15:26] LABS: ABS Basophils 0.1 10^3/uL (0.0-0.1); ABS Eosinophils 0.5 10^3/uL (0.0-0.5); ABS Lymphocytes 2.6 10^3/uL (1.0-4.8); ABS Monocytes 0.4 10^3/uL (0.0-0.9); ABS Nucleated RBC 0.02 10^3/ul; Eosinophil % 4.5 %; Hematocrit 48.3 % (35-45); Hemoglobin 16.5 g/dL (11.5-14.3); Lymphocyte % 22.7 %; Mean Corpuscular Hemoglobin 31.3 pg (27-33); Mean Corpuscular Hgb Conc 34.1 g/dL (31-36); Mean Corpuscular Volume 91.7 fL (80-97); Nucleated Red Blood Cells % 0.2 /100 WBC (0.0-0.4); Platelet Count 319 10^3/uL (150-450); Red Blood Count 5.27 10^6/uL (3.63-4.92); Red Cell Distribution Width 13.8 % (12-17); White Blood Count 11.6 10^3/uL (3.8-11.8)
[2023-05-28 15:37] LABS: INR 1.11 (0.88-1.18)
[2023-05-28] MEDS ORDERED: Ondansetron ODT 4 mg TAB 4 MG TAB PO PRN (16:45)
[2023-05-28] MEDS ORDERED: Ondansetron 4 mg VIAL 2 MG/ML 2 ml VIAL IV PRN (16:45)
[2023-05-28] MEDS ORDERED: Lactulose 30 ml UDC PO PRN (16:45)
[2023-05-28] MEDS ORDERED: Magnesium Hydroxide LIQ 30 ML UDC PO PRN (16:45)
[2023-05-28] MEDS ORDERED: Zosyn per Pharmacy NOTE FOLLOW UP SCH (17:00)
[2023-05-28] MEDS: Morphine 2 MG/ML SYRINGE IV PRN (18:01)
[2023-05-28] MEDS ORDERED: Nicotine PATCH 21 MG/24 HR PATCH TRANSDERM ONE (21:33)
[2023-05-28] MEDS ORDERED: ZOSYN 3.375 GM Q8H per EXTENDED INFUSION IV SCH (22:00)
[2023-05-29] MEDS: Magnesium Hydroxide LIQ 30 ML UDC PO SCH ×3 (02:19→20:26)
[2023-05-29] MEDS: Morphine 2 MG/ML SYRINGE IV PRN ×3 (02:30→18:08)
[2023-05-29] MEDS: ZOSYN 3.375 GM Q8H per EXTENDED INFUSION IV SCH ×3 (02:30→18:08)
[2023-05-29] MEDS ORDERED: Ondansetron 4 mg VIAL 2 MG/ML 2 ml VIAL ONE (06:39)
[2023-05-29] MEDS ORDERED: fentaNYL 100 mcg/2 ml 50 MCG/ML VIAL ONE (06:39)
[2023-05-29] MEDS ORDERED: Dexamethasone IV 4 MG/ML VIAL 1 ml VIAL ONE (06:39)
[2023-05-29] MEDS ORDERED: Propofol 10 MG/ML 20 ML BTL ONE ×2 (06:39)
[2023-05-29] MEDS ORDERED: Lidocaine 2% PF 5 ML VIAL ONE (06:39)
[2023-05-29] MEDS ORDERED: Midazolam 2 mg/2 ml VIAL 1 mg/ml 2 ml VIAL (2 mg) ONE (06:39)
[2023-05-29] MEDS ORDERED: Acetaminophen IV 1 GM/100ML 1,000 MG/100 ML BAG IV ONE (06:40)
[2023-05-29] MEDS ORDERED: Bupivacaine 0.5% SDV PF 30ML VIAL ONE (07:12)
[2023-05-29] MEDS ORDERED: Lidocaine 1% VIAL 10 MG/ML 30 ML VIAL ONE (07:12)
[2023-05-29] MEDS ORDERED: ceFAZolin 1 GM ADVAN 1 GM ADDV.VIAL IVPB ONE (07:40)
[2023-05-29] MEDS ORDERED: ceFAZolin VIAL VIAL ONE (07:40)
[2023-05-29] MEDS ORDERED: Naloxone 0.4 mg VIAL 0.4 mg/ml 1 ml VIAL IV PRN (08:34)
[2023-05-29] MEDS ORDERED: fentaNYL 100 mcg/2 ml 50 MCG/ML VIAL IV PRN (08:34)
[2023-05-29] MEDS ORDERED: HYDROmorphone 1 MG/1 ML SYRINGE IV PRN (08:34)
[2023-05-29] MEDS ORDERED: Ondansetron 4 mg VIAL 2 MG/ML 2 ml VIAL IV PRN (08:34)
[2023-05-29] MEDS ORDERED: HYDROmorphone 0.5 MG/0.5 ML SYRINGE ONE (08:55)
[2023-05-29] MEDS: Vitamin THERAPEUTIC TAB PO SCH (09:32)
[2023-05-30] MEDS: ZOSYN 3.375 GM Q8H per EXTENDED INFUSION IV SCH ×2 (01:50→09:01)
[2023-05-30] MEDS: Magnesium Hydroxide LIQ 30 ML UDC PO SCH (08:04)
[2023-05-30] MEDS: Vitamin THERAPEUTIC TAB PO SCH (08:04)
[2023-05-30] MEDS: Morphine 2 MG/ML SYRINGE IV PRN (08:41)
[2023-05-30 14:41] VITALS: BP 126/81
== END 2023-05-30 15:39 | disposition home or self-care (01) ==
LOC: EDHOLD 12:36 → ED 12:36 → SSU 05-29 06:25
PROVIDERS: ADMIT Orthopaedic Surgery; ATTEND Orthopaedic Surgery